=== PATIENT | female | born 1940 | race Caucasian/White ===

== ENCOUNTER 2021-06-04 01:47 | Observation (INO) | payer MEDICARE, OTHER, SELFPAY ==
[2021-06-04] VITALS (8 sets, daily range): BP systolic 132–176; BP diastolic 43–65; PULSE 62–80; RESP 14–18; TEMP 36.2–38.7; O2SAT 93–99; BMI 37.5; BMI 35.9
--- NOTE | 2021-06-04 02:18 | ED.VIS.GI ---
HPI HPI - GI History of Present Illness Chief Complaint: Nausea/Vomiting/Diarrhea Narrative Narrative: 81-year-old female with nausea, vomiting, diarrhea x1 hour. She states she met a casserole earlier and she is the only one that ate it. She states it tasted fine. Patient states that about midnight she started having diarrhea and then about an hour ago started vomiting. She states that she tried to get up go to the bathroom and felt lightheaded and fell. She denies any injury. She states that she has not had a fever. She does admit to chills. She has no abdominal pain. Patient reports she has a history of liver transplant many years ago. Her liver enzymes were followed throughout these years and have been normal. Patient does report that she has intermittent bouts of nausea, vomiting, diarrhea since her liver transplant. He is due 10 to resolve. [facility] Medical History Diabetes mellitus Hypertension Home Medications ondansetron 4 mg PO Q8H PRN #10 tab 06/04/21 [Rx Last Taken Unknown] Allergy/AdvReac Type Severity Reaction Status Date / Time calcium carbonate AdvReac Rash Verified 06/04/21 01:50 [From Viactiv] cholecalciferol (vitamin D3) AdvReac Rash Verified 06/04/21 01:50 [From Viactiv] phytonadione (vitamin K1) AdvReac Rash Verified 06/04/21 01:50 [From Viactiv] Surgical History Liver transplanted Social History Smoking Status: Never smoker ROS ROS ED Constitutional Constitutional ED: Reports chills; Denies fever(s) ENT ENT ED: Denies rhinorrhea Cardiovascular Cardiovascular: Denies chest pain or palpitations Respiratory/Chest Respiratory/Chest: Denies cough or dyspnea Gastrointestinal Gastrointestinal: Reports diarrhea, nausea and vomiting; Denies abdominal pain Genitourinary Genitourinary ED: Denies dysuria or hematuria Musculoskeletal Musculoskeletal: Denies myalgias Integumentary Denies rash Neurologic Neurologic: Denies headache(s) or weakness Psychiatric Psychiatric: Denies anxiety or depression EXAM Physical Exam Const Vital Signs: 06/04/21 01:51 Temperature 97.4 F L Temperature Source Oral Pulse Rate 62 Respiratory Rate 15 Blood Pressure 132/48 H Blood Pressure Mean 76 Pulse Ox 99 Oxygen Delivery Method Room Air Positive well nourished General Appearance ED: NAD; Negative for pallor HEENT normocephalic and atraumatic Eyes PERRL and EOMs intact bilaterally General Eye ED: Negative for pale conjunctiva or scleral icterus Neck no lymphadenopathy and supple Resp normal respiratory effort and clear to auscultation bilaterally Cardio regular rate and regular rhythm GI non-tender and non-distended Palpation: soft Neuro Sensorium / Orientation: alert, oriented to person, oriented to place and oriented to time Psych mental status grossly normal and thought process normal Skin General Skin Exam: Negative for jaundice or pallor Lesions: no lesions Rashes: no rashes MDM MDM MDM Narrative Medical decision making narrative: Patient seen and evaluated for nausea, vomiting, diarrhea. She felt lightheaded earlier and fell without injury. Patient does report multiple episodes of diarrhea prior to her vomiting episode. She was given a liter of normal saline and Zofran without return of her nausea. CBC is drawn and shows a slight leukocytosis of 13.1 however this is nonspecific and may be due to her vomiting episodes. She does not have any abdominal pain, cough, shortness of breath, urinary symptoms. She does have diarrhea without recent antibiotics use. She does report that she made herself a casserole yesterday which may be the source of her diarrhea, nausea, vomiting. CMP shows a slightly elevated alkaline phosphatase at 156 but otherwise her LFTs are normal. Creatinine is 1.77 and this was compared to her previous creatinine 2 days ago which was 1.58. Her GFR then was 33 and today it is 29. Urinalysis negative for infection. Patient has normal vital signs and otherwise well-appearing. Since her nausea and vomiting have resolved I will give her some Zofran for home. She is encouraged to hydrate well. She is given return precautions. Impression: 1. Nausea/vomiting 2. Diarrhea 3. Leukocytosis 4. Dehydration 5. Lightheadedness Lab Data Attestation: I reviewed the patient's lab results. Labs: Laboratory Results - last 24 hr 06/04/21 06/04/21 06/04/21 02:20 02:20 02:40 WBC 13.1 H RBC 4.97 Hgb 13.9 Hct 43.9 MCV 88.3 MCH 28.0 MCHC 31.7 L RDW Std Deviation 44.0 H RDW Coeff of Tim 13.6 Plt Count 225 MPV 11.0 Immature Gran % (Auto) 0.500 Neut % (Auto) 83.9 H Lymph % (Auto) 8.3 L [place] % (Auto) 5.7 Eos % (Auto) 1.4 Baso % (Auto) 0.2 Absolute Neuts (auto) 11.0 H Absolute Lymphs (auto) 1.09 Nucleated RBC % 0 Sodium 141 Potassium 4.2 Chloride 112 H Carbon Dioxide 24.0 Anion Gap 5 BUN 29 H Creatinine 1.77 H Estim Creat Clear Calc 21.53 Est GFR (MDRD) Af Amer 35 L Est GFR (MDRD) Non-Af 29 L BUN/Creatinine Ratio 16.4 Glucose 156 H Calcium 8.3 L Total Bilirubin 0.20 AST 33 ALT 36 Alkaline Phosphatase 156 H Total Protein 7.4 Albumin 3.4 Globulin 4.0 Albumin/Globulin Ratio 0.8 L Urine Color Yellow Urine Clarity Clear Urine pH 6.0 Ur Specific [place] 1.025 Urine Protein 100 H Urine Glucose (UA) Normal Urine Ketones Negative Urine Occult Blood Negative Urine Nitrite Negative Urine Bilirubin Negative Urine Urobilinogen Normal Ur Leukocyte Esterase Negative Urine RBC 0 SEEN Urine WBC 0 SEEN Ur Squamous Epith Cells 0 SEEN Urine Bacteria RARE Urine Mucus 0 SEEN Discharge Plan Triage Chief Complaint: Nausea/Vomiting/Diarrhea ED Provider: Ashwin Lawson Dx/Rx/DC Orders Instructions: ED Vomiting and Diarrhea ... Prescriptions: New ondansetron 4 mg tablet,disintegrating 4 mg PO Q8H PRN (Reason: nausea and vomiting) Qty: 10 RF: 0 Primary Care Provider: Iza Fox Referrals: Iza Fox MD [Primary Care Provider] - Disposition Disposition: Home, Self Care
[2021-06-04] MEDS: Ondansetron 4 MG/2 ML Vial IV (02:20)
[2021-06-04] MEDS: 0.9% Normal Saline 1,000 ML 1000 ML IV (02:20)
[2021-06-04 02:27] LABS: Absolute Lymphocyte Count 1.09 X10^3/uL (0.83-4.51); Basophil# 0.03 X10^3/uL; Basophil% 0.2 % (0-1); Eosinophil# 0.18 X10^3/uL; Eosinophils% 1.4 % (0-5); Hematocrit 43.9 % (37-47); Hemoglobin 13.9 g/dL (12.0-15.0); Lymphocyte # 1.09 X10^3/ul (0.83-4.51); Lymphocyte % 8.3 % (19-41); Mean Corp Hgb Conc 31.7 g/dL (32-36); Mean Corpuscular Volume 88.3 fL (81-99); Monocyte# 0.75 X10^3/uL; Monocyte% 5.7 % (0-10); NRBC Flagged by Analyzer 0 % (0-5); Neutrophil # 10.95 X10^3/uL (2.7-7.7); Neutrophil % 83.9 % (47-70); Platelet Count 225 K/mm3 (150-450); RBC Distribution Width CV 13.6 % (11.6-14.6); Red Blood Count 4.97 M/mm3 (4.2-5.4); White Blood Count 13.1 K/mm3 (4.4-11.0)
[2021-06-04 02:47] LABS: Mucous, Urine 0 SEEN /hpf (<or=2+); Red Blood Cells-Urine 0 SEEN /hpf (0-5); Squamous Epithelial Cells - UA 0 SEEN /hpf (5-10); White Blood Cells 0 SEEN /hpf (0-5)
[2021-06-04 02:49] LABS: Color, Urine Yellow (Yellow); Glucose, Dipstick Normal (Normal); Ketone-Dipstick Negative (Negative); Leukocyte Esterase-Dipstick Negative /ul (Negative); Nitrite-Dipstick Negative (Negative); Occult Blood-Urine Negative /ul (Negative); Protein-Dipstick 100 mg/dl (Negative); Specific Gravity, Urine 1.025 (1.002-1.030); Urine Bilirubin Dipstick Negative (Negative); Urine Clarity Clear (Clear); Urine Urobilinogen Normal (Normal)
[2021-06-04 02:54] LABS: ALB/GLOB Ratio 0.8 RATIO (0.9-2.4); AST(SGOT) 33 U/L (15-37); Alanine Aminotransfer ALT/SGPT 36 U/L (13-56); Albumin, Serum 3.4 g/dL (3.2-5.0); Alkaline Phosphatase 156 U/L (45-117); Anion Gap 5 (5-15); BUN 29 mg/dL (7-18); BUN/Creat Ratio 16.4 RATIO (10-20); Calcium,Total 8.3 mg/dL (8.5-10.1); Chloride 112 mmol/L (98-107); Creatinine, Serum 1.77 mg/dL (0.55-1.02); EST Glomerular Filtration Rate 29 mL/min (>60); Est Glom Filt Rate - Afr Amer 35 mL/min (>60); Estimated Creatinine Clearance 21.53 ml/min; Glucose 156 mg/dL (74-106); Potassium 4.2 mmol/L (3.5-5.1); Protein, Total 7.4 g/dL (6.4-8.2); Sodium Level 141 mmol/L (136-145)
[2021-06-04 03:01] LABS: Bacteria RARE /hpf (None Seen)
--- NOTE | 2021-06-04 04:39 | ED.RN ---
FAMILY CONCERNED ABOUT PT BEING D/C D/T HER STILL BEING WEAK. THIS RN STATED THAT SHE WOULD HAVE THE PT GET UP AND WALK, PT STATES, I DONT WANT TO WALK. PT GIVEN LITTLE TO NO EFFECT TO HELP SIT UP IN BED. THIS RN AND FAMILY HELP PT TO SIT THEN STAND. PT I DONT WANT TO WALK. THIS RN AND FAMILY ASSIST THE PT TO SIT, PT ON HER OWN ADJUSTS HER SELF IN BED AND SWINGS HER LEGS BACK IN BED.
--- NOTE | 2021-06-04 05:14 | HP.PCM.HOS_ITS ---
HPI - General General Date of Admission: 06/04/21 HPI Narrative PREETHI THOMAS, is a 81 F with a significant history of liver transplantation 21 years ago; diabetes mellitus who presents to emergency department with nausea vomiting and diarrhea after eating a casserole on the same day. Her symptoms started few hours before presentation. Associated symptom is chills; lightheadedness and fall. Also a day before her symptoms started she ate a fish salad from a restaurant. At the emergency department attempts was made to discharge patient. Patient stood up however she said that she could not walk. She then laid on the bed and had loose bowel movements. She had multiple episodes of loose bowel movements at the emergency department. She reports fatigue and weakness [facility] Medical History Diabetes mellitus Hypertension Home Medications ondansetron 4 mg PO Q8H PRN #10 tab 06/04/21 [Rx Last Taken Unknown] Allergy/AdvReac Type Severity Reaction Status Date / Time calcium carbonate AdvReac Rash Verified 06/04/21 01:50 [From Viactiv] cholecalciferol (vitamin D3) AdvReac Rash Verified 06/04/21 01:50 [From Viactiv] phytonadione (vitamin K1) AdvReac Rash Verified 06/04/21 01:50 [From Viactiv] Family History Other Diabetes Surgical History Liver transplanted Social History Smoking Status: Never smoker ROS ROS Narrative Pertinent positives and pertinent negatives as noted in HPI. All other systems were reviewed and are negative. Vital Signs Vital Signs Vital Signs: 06/04/21 01:51 Temperature 97.4 F L Temperature Source Oral Pulse Rate 62 Respiratory Rate 15 Blood Pressure 132/48 H Blood Pressure Mean 76 Pulse Ox 99 Oxygen Delivery Method Room Air Weight Weight: 99.2 kg Body Mass Index (BMI) 37.5 Physical Exam Narrative Physical exam: General: Well-nourished, well-developed. Head: Normocephalic, atraumatic, no tenderness Eyes: Vision is grossly intact. EOMI ENT, no trauma, moist mucous membranes, no rhinorrhea Neck: Nontender, full range of motion, no spinal tenderness, deformities, step- off CVS: Regular rate and rhythm. S1-S2 present. No murmur, gallop or rub. Respiratory : clear to auscultation bilaterally, chest wall nontender, no wheezing Abdomen: Soft, nontender, nondistended, normal bowel sounds, no masses : Deferred Back: Nontender, no CVA tenderness, no midline spinal tenderness, deformities, step-offs Extremities: Nontender full range of motion, no trauma Skin: Normal color, no trauma, abrasions Neuro: Alert, oriented, cranial nerves II through XII grossly intact. Psychiatry: Normal mood. Normal affect. Not depressed. Not anxious. Results Lab / Micro Data Result Diagrams: 06/04/21 02:20 06/04/21 02:20 Labs: Laboratory Results - last 24 hr 06/04/21 02:20: WBC 13.1 H, RBC 4.97, Hgb 13.9, Hct 43.9, MCV 88.3, MCH 28.0, MCHC 31.7 L, RDW Std Deviation 44.0 H, RDW Coeff of Tim 13.6, Plt Count 225, MPV 11.0, Immature Gran % (Auto) 0.500, Neut % (Auto) 83.9 H, Lymph % (Auto) 8.3 L, [place] % (Auto) 5.7, Eos % (Auto) 1.4, Baso % (Auto) 0.2, Absolute Neuts (auto) 11.0 H, Absolute Lymphs (auto) 1.09, Nucleated RBC % 0 06/04/21 02:20: Sodium 141, Potassium 4.2, Chloride 112 H, Carbon Dioxide 24.0, Anion Gap 5, BUN 29 H, Creatinine 1.77 H, Estim Creat Clear Calc 21.53, Est GFR (MDRD) Af Amer 35 L, Est GFR (MDRD) Non-Af 29 L, BUN/Creatinine Ratio 16.4, Glucose 156 H, Calcium 8.3 L, Total Bilirubin 0.20, AST 33, ALT 36, Alkaline Phosphatase 156 H, Total Protein 7.4, Albumin 3.4, Globulin 4.0, Albumin/Globulin Ratio 0.8 L 06/04/21 02:40: Urine Color Yellow, Urine Clarity Clear, Urine pH 6.0, Ur Specific [place] 1.025, Urine Protein 100 H, Urine Glucose (UA) Normal, Urine Ketones Negative, Urine Occult Blood Negative, Urine Nitrite Negative, Urine Bilirubin Negative, Urine Urobilinogen Normal, Ur Leukocyte Esterase Negative, Urine RBC 0 SEEN, Urine WBC 0 SEEN, Ur Squamous Epith Cells 0 SEEN, Urine Bacteria RARE, Urine Mucus 0 SEEN Assessment & Plan Assessment/Plan (1) Gastroenteritis: (2) Diabetes mellitus: QUALIFIERS: Diabetes mellitus complication status: without complication Diabetes mellitus manager terminal insulin use: with detention use Diabetes mellitus type: type 2 Qualified Code(s): E11.9 - Type 2 diabetes mellitus without complications; Z79.4 - correction (current) use of insulin PLAN: Acute gastroenteritis Likely viral Discussed ED doctor ordered enteric pathogen panel and C. difficile; follow. Supportive treatment with lactated Ringer's; IV Zofran for antiemetics. Generalized weakness Secondary acute gastroenteritis PT and OT to work with patient. Case management consult. Diabetes mellitus with nephropathy Patient with hyperglycemia on presentation De-escalate home basal insulin. Accu-Chek QA CHS with correction scale insulin ordered. Hypertension Blood pressure is not within goal Continue home amlodipine and lisinopril. As needed hydralazine ordered. Trend blood pressure and adjust blood pressure medications. CKD stage IIIb Creatinine on presentation was 1.77. Of [facility] records show that on 06/01/2021 her creatinine was 1.56 and on 03/23/2021 her creatinine was 1.55. Stable Trend BMP DVT prophylaxis SCD ordered. Charges/Coding Visit Charges OBSV E&M: 15310 Initial observation care L3
--- NOTE | 2021-06-04 05:22 | ED.RN ---
PT REFUSES TO USE BED PAIN OR BED SIDE TOILET. PT JUST WANTS TO LAY IN BED AND SOIL HER DIAPER.
--- NOTE | 2021-06-04 05:25 | ED.RN ---
FAMILY WANTING TO KNOW WHAT THE WAIT IS FOR REGARDING BEING ADMITTED. EXPLAINED THAT IT IS A PROCESS AND THOUGH THE PT DOES NOT FEEL WELL, SHE IS STABLE.
[2021-06-04] MEDS: Lactated Ringers 1,000 ML 75 ML IV ×2 (07:01→20:37)
[2021-06-04] MEDS: Insulin Lispro 100 UNIT/ML INSULN.PEN SC ×4 (07:11→21:00)
[2021-06-04 08:45] LABS: Bedside Glucose 214 mg/dL (74-106)
--- NOTE | 2021-06-04 10:46 | CASEMGMT ---
SW met with patient. Introduced self and role at [facility]. SW asked patient if she thinks she will be able to return home or if she thinks she will need to go somewhere for short term rehab. Patient feels she will be able to go home at discharge. Patient asked for information on medical alert systems. SW told patient SW will get her information. Halina ALFARO
[2021-06-04 11:25] LABS: Bedside Glucose 182 mg/dL (74-106)
--- NOTE | 2021-06-04 13:12 | CASEMGMT ---
LONNIE provided patient with a medical alert list. Patient was sleeping so LONNIE set it on her table. Halina ALFARO
[2021-06-04] MEDS: Acetaminophen 325 MG Tablet 650 MG PO ×2 (13:15→20:58)
--- NOTE | 2021-06-04 15:36 | CASEMGMT ---
Therapy states no need for any further therapy at discharge. Angel GALDAMEZ CM
[2021-06-04 17:05] LABS: Bedside Glucose 208 mg/dL (74-106)
[2021-06-04] MEDS: Insulin Glargine-YFGN 100 UNIT/ML Pen 18 UNIT SC (20:59)
[2021-06-04 21:11] LABS: Bedside Glucose 168 mg/dL (74-106)
[2021-06-05 02:57] VITALS: BP 142/41; PULSE 67; RESP 18; TEMP 37.2; O2SAT 96
[2021-06-05 04:52] LABS: Absolute Lymphocyte Count 1.01 X10^3/uL (0.83-4.51); Absolute Neutrophil Count 4.1 X10^3/uL (2.0-7.7); Basophil# 0.01 X10^3/uL; Basophil% 0.2 % (0-1); Eosinophil# 0.05 X10^3/uL; Eosinophils% 0.9 % (0-5); Hematocrit 35.4 % (37-47); Hemoglobin 11.3 g/dL (12.0-15.0); Lymphocyte # 1.01 X10^3/ul (0.83-4.51); Lymphocyte % 18.4 % (19-41); Mean Corp Hgb Conc 31.9 g/dL (32-36); Mean Corpuscular Hgb 28.3 pg (27.0-32.0); Mean Corpuscular Volume 88.7 fL (81-99); Mean Platelet Vol. 11.6 fl (6.2-12.0); Monocyte# 0.29 X10^3/uL; Monocyte% 5.3 % (0-10); NRBC Flagged by Analyzer 0 % (0-5); Neutrophil # 4.11 X10^3/uL (2.7-7.7); Neutrophil % 74.8 % (47-70); Platelet Count 146 K/mm3 (150-450); RBC Distribution Width SD 45.4 fl (35.1-43.9); Red Blood Count 3.99 M/mm3 (4.2-5.4); White Blood Count 5.5 K/mm3 (4.4-11.0)
[2021-06-05 05:06] LABS: Anion Gap 5 (5-15); BUN 31 mg/dL (7-18); BUN/Creat Ratio 20.7 RATIO (10-20); Calcium,Total 7.4 mg/dL (8.5-10.1); Chloride 111 mmol/L (98-107); EST Glomerular Filtration Rate 35 mL/min (>60); Est Glom Filt Rate - Afr Amer 43 mL/min (>60); Glucose 146 mg/dL (74-106); Potassium 4.2 mmol/L (3.5-5.1); Sodium Level 138 mmol/L (136-145)
[2021-06-05 05:10] LABS: Magnesium 1.5 mg/dL (1.6-2.6)
[2021-06-05 06:51] LABS: Bedside Glucose 121 mg/dL (74-106)
[2021-06-05 08:05] VITALS: BP 140/51; PULSE 63; RESP 18; TEMP 36.4; O2SAT 97
[2021-06-05] MEDS: Lactated Ringers 1,000 ML 75 ML IV (09:30)
[2021-06-05] MEDS: Ramipril 2.5 MG Capsule PO (09:30)
[2021-06-05] MEDS: amLODIPine 10 MG Tablet PO (09:30)
[2021-06-05] MEDS: Tacrolimus Anhydrous 1 MG Capsule PO (09:30)
[2021-06-05] MEDS: Insulin Lispro 100 UNIT/ML INSULN.PEN SC (11:13)
[2021-06-05 11:25] LABS: Bedside Glucose 186 mg/dL (74-106)
--- NOTE | 2021-06-05 11:46 | CASEMGMT ---
DENICE PANDEY in to discuss [employer] form with patient. DENICE PANDEY explained [employer] form, patient voiced understanding. Pt signed form and filed in chart. Pt provided with a copy of signed [employer] form. Provided pt with a list of medic alert companies and pricing per request. Patient had no further questions or concerns at this time.
[2021-06-05 12:54] VITALS: O2SAT 97
[2021-06-05 14:15] VITALS: BP 123/93; PULSE 69; RESP 18; TEMP 36.9; O2SAT 98
--- NOTE | 2021-06-05 14:31 | DCINST_ITS ---
Discharge Instructions Diet Discharge Diet: Carb Control Diet Activity Discharge Activity: Return to Normal Activity Dressing / Incision Call your doctor if you observe: Fever of 101 or Higher, Shortness of breath, Dizziness, Fainting spells, Swelling in the ankles, Chest pain and Increased palpitations (irregular heartbeat) Follow Up Care Test Results: Test results from this visit will be discussed in further detail at your follow-up appointment, if applicable. Discharge Plan Admission Admit Date/Time: 06/04/21 05:07 Attending Provider: Nickolas Baxter Primary Care Provider: Iza Fox Instructions Patient Instructions: ED Vomiting and Diarrhea ... Additional Instructions / Restrictions: Follow-up with your PCP to obtain a BMP to monitor your kidney function. It was a little bit high on admission however we do not have any baseline labs to c ompare you to. Discharge Orders/Prescriptions Prescriptions: New ondansetron 4 mg tablet,disintegrating 4 mg PO Q8H PRN (Reason: nausea and vomiting) Qty: 10 RF: 0 Continued amlodipine 5 mg tablet 10 mg DAILY RF: 0 Lantus Solostar U-100 Insulin 100 unit/mL (3 mL) insulin pen 28 unit SUBCUT QHS RF: 0 lovastatin 20 mg tablet 20 mg QHS RF: 0 magnesium gluconate [Mag-G] 27 mg magnesium (500 mg) tablet 27 mg DAILY RF: 0 sulfamethoxazole-trimethoprim 800-160 mg tablet 1 tab QMWF RF: 0 tacrolimus 1 mg capsule 1 mg BID RF: 0 Trulicity 0.75 mg/0.5 mL pen injector SUBCUT QWEEK RF: 0 Held ramipril 2.5 mg capsule 2.5 mg DAILY RF: 0 Hold Instructions: Resume on 06/08/21. Referrals / Follow Up: Iza Fox MD [Primary Care Provider] - Within 2 Weeks Disposition Disposition (needs filled in before D/C Order can be placed): Home, Self Care
--- NOTE | 2021-06-05 14:35 | DS.PCM_ITS ---
Providers Date of Admission: 06/04/21 Primary Care Physician: Dr. 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 Medications at Discharge Home Medications Lantus Solostar U-100 Insulin 28 unit SUBCUT QHS 06/04/21 Trulicity mg SUBCUT QWEEK 06/04/21 amlodipine 10 mg DAILY 06/04/21 lovastatin 20 mg QHS 06/04/21 magnesium gluconate [Mag-G] 27 mg DAILY 06/04/21 ondansetron 4 mg PO Q8H PRN #10 tab 06/04/21 ramipril 2.5 mg DAILY 06/04/21 sulfamethoxazole-trimethoprim 1 tab QMWF 06/04/21 tacrolimus 1 mg BID 06/04/21 Hospital Course Operations None Procedures None Summary of Care Provided Minutes Spent on Discharge: 40 Hospital Course: Per HPI: PREETHI THOMAS, is a 81 F with a significant history of liver transplantation 21 years ago; diabetes mellitus who presents to emergency department with nausea vomiting and diarrhea after eating a casserole on the same day. Her symptoms started few hours before presentation. Associated symptom is chills; lightheadedness and fall. Also a day before her symptoms started she ate a fish salad from a restaurant. At the emergency department attempts was made to discharge patient. Patient stood up however she said that she could not walk. She then laid on the bed and had loose bowel movements. She had multiple episodes of loose bowel movements at the emergency department. She reports fatigue and weakness Hospital Course: 1. Gastroenteritis/CKD 3B?81-year-old female who has had intermittent episodes of gastroenteritis in the past presents with acute gastroenteritis that could be related to food. She says she and her friend went to go eat and both became s ick with nausea, vomiting, diarrhea. Unfortunately she has been unable to provide a stool sample because she continues to miss the hat in the toilet however the nurse did see her last bowel movement and it was performed essentially ruling out C. difficile. She feels much better today and I discuss ed with her the possibility for discharge, she did express understanding of the risk and benefits of discharge and would like to go home today. She was valued by PT/OT who did not recommend any further outpatient therapy. On admission her creatinine was 1.77 unfortunately we were unable to tell at that time whether or not this is her baseline creatinine. On discharge her creatinine is 1.55 which does appear to be closer to baseline. Till Monday and recommend outpatient follow-up for further lab work to determine continued maintenance of her baseline creatinine. Family was asking for the possibility of a GI consult and I do think that this is some that can be done as an outpatient. 2. Hypertension, diabetes with nephropathy, hyperlipidemia, transplant history are all chronic medical conditions which complicate care. Her home medications were continued where appropriate. I did discuss with her the recommendation to follow-up with transplant medicine to see whether or not the tacrolimus and the Bactrim are something that need to be continued. Physical Exam Const alert, oriented x3 and no apparent distress General Appearance: cooperative HEENT normocephalic and moist oral mucous membranes Eyes PERRL, EOMs intact bilaterally and conjunctivae normal Neck supple and no JVD Resp normal respiratory effort, no retractions, no use of accessory muscles and clear to auscultation bilaterally Auscultation: Negative for crackles, rales, rhonchi or wheezes Cardio regular rate, regular rhythm, S1 normal heart sound, S2 normal heart sound and no murmurs GI soft to palpation, non-tender and non-distended; Negative for hepatosplenomegaly Extremity no clubbing, cyanosis or edema Skin no rashes or lesions noted Neuro no focal motor deficits and no sensory deficits noted Psych affect normal Appearance: appropriate Weight / BMI Weight Weight: 209 lb 10.554 oz Body Mass Index (BMI) 35.9 ABG / Lab / Microbiology Data Result Diagrams: 06/05/21 04:13 06/05/21 04:13 Laboratory: Laboratory Results - last 24 hr 06/04/21 17:00: POC Glucose 208 H 06/04/21 20:48: POC Glucose 168 H 06/05/21 04:13: WBC 5.5, RBC 3.99 L, Hgb 11.3 L, Hct 35.4 L, MCV 88.7, MCH 28.3, MCHC 31.9 L, RDW Std Deviation 45.4 H, RDW Coeff of Tim 14.0, Plt Count 146 L, MPV 11.6, Immature Gran % (Auto) 0.400, Neut % (Auto) 74.8 H, Lymph % (Auto) 18.4 L, [place] % (Auto) 5.3, Eos % (Auto) 0.9, Baso % (Auto) 0.2, Absolute Neuts (auto) 4.1, Absolute Lymphs (auto) 1.01, Nucleated RBC % 0 06/05/21 04:13: Sodium 138, Potassium 4.2, Chloride 111 H, Carbon Dioxide 22.0, Anion Gap 5, BUN 31 H, Creatinine 1.50 H, Estim Creat Clear Calc 25.40, Est GFR (MDRD) Af Amer 43 L, Est GFR (MDRD) Non-Af 35 L, BUN/Creatinine Ratio 20.7 H, Glucose 146 H, Calcium 7.4 L 06/05/21 04:13: Magnesium 1.5 L 06/05/21 06:32: POC Glucose 121 H 06/05/21 11:11: POC Glucose 186 H D/C Instructions Discharge Diet: Carb Control Diet Call your doctor if you observe: Fever of 101 or Higher, Shortness of breath, Dizziness, Fainting spells, Swelling in the ankles, Chest pain and Increased palpitations (irregular heartbeat) Meaningful Use Info Meaningful Use Diagnoses (Choose all that apply): None applicable Discharge Plan Admission Admit Date/Time: 06/04/21 05:07 Attending Provider: Nickolas Baxter Primary Care Provider: Iza Fox Instructions Patient Instructions: ED Vomiting and Diarrhea ... Additional Instructions / Restrictions: Follow-up with your PCP to obtain a BMP to monitor your kidney function. It was a little bit high on admission however we do not have any baseline labs to compare you to. Discharge Orders/Prescriptions Prescriptions: New ondansetron 4 mg tablet,disintegrating 4 mg PO Q8H PRN (Reason: nausea and vomiting) Qty: 10 RF: 0 Continued amlodipine 5 mg tablet 10 mg DAILY RF: 0 Lantus Solostar U-100 Insulin 100 unit/mL (3 mL) insulin pen 28 unit SUBCUT QHS RF: 0 lovastatin 20 mg tablet 20 mg QHS RF: 0 magnesium gluconate [Mag-G] 27 mg magnesium (500 mg) tablet 27 mg DAILY RF: 0 sulfamethoxazole-trimethoprim 800-160 mg tablet 1 tab QMWF RF: 0 tacrolimus 1 mg capsule 1 mg BID RF: 0 Trulicity 0.75 mg/0.5 mL pen injector SUBCUT QWEEK RF: 0 Held ramipril 2.5 mg capsule 2.5 mg DAILY RF: 0 Hold Instructions: Resume on 06/08/21. Referrals / Follow Up: Iza Fox MD [Primary Care Provider] - Within 2 Weeks Disposition Disposition (needs filled in before D/C Order can be placed): Home, Self Care Charges/Coding Visit Charges OBSV E&M: 96804 Observation care discharge
== END 2021-06-05 14:34 | disposition home or self-care (01) ==
LOC: ED 05:14 → PCU 05:26
PROVIDERS: Admitting Provider Hospitalist; Emergency Provider Student in an Organized Health Care Education/Training Program; PCP Internal Medicine; Visit Provider Family Medicine
DX: K52.9 Noninfective gastroenteritis and colitis, unspecified (principal); Z94.4 Liver transplant status; E11.22 Type 2 diabetes mellitus with diabetic chronic kidney disease; Z79.4 Long term (current) use of insulin; N18.32 Chronic kidney disease, stage 3b; D72.829 Elevated white blood cell count, unspecified; E78.5 Hyperlipidemia, unspecified; I12.9 Hypertensive chronic kidney disease with stage 1 through stage 4 chronic kidney disease, or unspecified chronic kidney disease; E86.0 Dehydration; Z79.899 Other long term (current) drug therapy
CPT/HCPCS: 36415; 80048; 80053; 81001; 82962; 83735; 85025; 96361; 96374; 97162; 97166; 99218; 99285; J7030; J7120; G0378; J2405

== ENCOUNTER 2021-09-08 09:21 | Day surgery (SDC) | payer MEDICARE, OTHER, SELFPAY ==
[2021-09-08] VITALS (7 sets, daily range): BP systolic 141–184; BP diastolic 49–59; PULSE 53–70; RESP 15–16; TEMP 36.1–36.5; O2SAT 94–99; BMI 35.6
[2021-09-08] MEDS: Lactated Ringers 1,000 ML 15 ML IV (09:58)
[2021-09-08 10:20] LABS: Bedside Glucose 151 mg/dL (74-106)
--- NOTE | 2021-09-08 10:45 | EGD_PTH ---
PATIENT: PREETHI THOMAS LOC: EN U#:[id number] AGE/SX: 81/F ROOM: RE09/08/[address]: Dr. Julio Ramos DO : 1940 BED: DIS: 09/08/2021 SPEC #: [id number] RECD: 09/08/21 13:55 STATUS: MEGHAN TIKI #: [id number] STEPHANIE: 09/08/21 10:[address]: Julio Ramos DEPT: SURGICAL PATHOLOGY RECD BY: Yomaira Johnson ENTERED: 09/09/21 09:36 SP TYPE: EGD BIOPSY GABRIELLA DR: Dr. 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 Chronic inflammation. Negative for dysplasia. See comment. PATRICIA:ewa 09/10/2021 COMMENT Alcian blue/PAS stain with matched control is used in the evaluation of the specimen. MICROSCOPIC DESCRIPTION Slides are reviewed. GROSS DESCRIPTION Received in fixative is one container labeled with the patient's name and designated distal esophagus biopsy. The specimen consists of two irregular fragments of light grace soft tissue that in aggregate measure 0.8 x 0.3 x 0.1 cm. The specimen is totally submitted in one cassette. / PATRICIA:ewa 09/09/2021 TC:3 CPT: 51643, 44083
--- NOTE | 2021-09-08 11:43 | OP.EGD_ITS ---
Patient Name: Carmen Townsend Procedure Date: 09/08/2021 11:23 AM Date of : 1940 Age: 81 Procedure: Upper GI endoscopy Indications: Dysphagia Providers: Julio Ramos DO Referring MD: Julio Ramos DO Medicines: Monitored Anesthesia Care Patient Profile: This is an 81 year old female. Refer to note in patient chart for documentation of history and physical. Patient has symptoms of chronic dysphagia. Complications: No immediate complications. Procedure: Pre-Anesthesia Assessment: - Prior to the procedure, a History and Physical was performed, and patient medications and allergies were reviewed. The risks and benefits of the procedure and the sedation options and risks were discussed with the patient. All questions were answered and informed consent was obtained. Patient identification and proposed procedure were verified by the physician in the pre-procedure area. Mental Status Examination: alert and oriented. Airway Examination: normal oropharyngeal airway and neck mobility. Respiratory Examination: clear to auscultation. CV Examination: normal. Prophylactic Antibiotics: The patient does not require prophylactic antibiotics. Prior Anticoagulants: The patient has taken no previous anticoagulant or antiplatelet agents. After reviewing the risks and benefits, the patient was deemed in satisfactory condition to undergo the procedure. The anesthesia plan was to use moderate sedation / analgesia (conscious sedation). Immediately prior to administration of medications, the patient was re-assessed for adequacy to receive sedatives. The heart rate, respiratory rate, oxygen saturations, blood pressure, adequacy of pulmonary ventilation, and response to care were monitored throughout the procedure. The physical status of the patient was re-assessed after the procedure. After obtaining informed consent, the endoscope was passed under direct vision. Throughout the procedure, the patient's blood pressure, pulse, and oxygen saturations were monitored continuously. The gastroscope was introduced through the mouth, and advanced to the second part of duodenum. The upper GI endoscopy was accomplished without difficulty. The patient tolerated the procedure well. Scope In: 11:27:46 AM Scope Out: 11:34:45 AM Total Procedure Duration Time 0 hours 6 minutes 59 seconds Findings: One benign-appearing, intrinsic stenosis was found 21 to 22 cm from the incisors. This stenosis was moderately severe and measured 6 cm (in length). The stenosis was traversed. A guidewire was placed and the scope was withdrawn. Dilation was performed with a Savary dilator with no resistance at 51 Fr. The dilation site was examined and showed. Estimated blood loss was minimal. The Z-line was irregular and was found 37 cm from the incisors. Biopsies were taken with a cold forceps for histology. Verification of patient identification for the specimen was done. Biopsy is contraindicated because. The examined esophagus was moderately tortuous. Two 5 mm bleeding angiodysplastic lesions were found in the gastric body. Coagulation for hemostasis using heater probe was successful. Estimated blood loss was minimal. A small amount of food (residue) was found in the prepyloric region of the stomach. The first portion of the duodenum was normal. Impression: - Benign-appearing esophageal stenosis. Dilated. - Z-line irregular, 37 cm from the incisors. Biopsied. Biopsy is contraindicated. - Tortuous esophagus. - Two bleeding angiodysplastic lesions in the stomach. Treated with a heater probe. - A small amount of food (residue) in the stomach. - Normal first portion of the duodenum. Recommendation: - Discharge patient to home. - Resume previous diet. - Continue present medications. - Await pathology results. Procedure Code(s): --- Professional --- 74957, 59, Esophagogastroduodenoscopy, flexible, transoral; with control of bleeding, any method 28733, Esophagogastroduodenoscopy, flexible, transoral; with insertion of guide wire followed by passage of dilator(s) through esophagus over guide wire 71290, 59,51, Esophagogastroduodenoscopy, flexible, transoral; with biopsy, single or multiple CPT copyright 2017 [employer]. All rights reserved. The codes documented in this report are preliminary and upon energy administrator review may be revised to meet current compliance requirements. Julio Ramos DO 09/08/2021 11:42:26 AM This report has been signed electronically. Number of Addenda: 1 Note Initiated On: 09/08/2021 11:23 AM Addendum Number: 1 Addendum Date: 11/11/2021 6:33:02 AM MAC was used as sedation for this procedure. Julio Ramos DO 11/11/2021 6:33:07 AM This report has been signed electronically.
--- NOTE | 2021-09-08 11:44 | OP.CCLET_ITS ---
11/11/2021 Iza Fox [address] [place] [address] Re : Upper GI endoscopy procedure for Carmen Townsend Dear Dr. Fox This procedure was performed on Wednesday, September 08, 2021. My impressions and recommendations are as follows: Impressions : - Benign-appearing esophageal stenosis. Dilated. - Z-line irregular, 37 cm from the incisors. Biopsied. Biopsy is contraindicated. - Tortuous esophagus. - Two bleeding angiodysplastic lesions in the stomach. Treated with a heater probe. - A small amount of food (residue) in the stomach. - Normal first portion of the duodenum. Recommendations : - Discharge patient to home. - Resume previous diet. - Continue present medications. - Await pathology results. My findings are described in the full procedure note, which is enclosed. If I can be of further assistance, please feel free to contact me at . Sincerely, Julio Ramos DO 09/08/2021 11:42:26 AM This report has been signed electronically.
[2021-09-08 12:30] LABS: Bedside Glucose 150 mg/dL (74-106)
--- NOTE | 2021-09-09 11:00 | PCM.HP.BLA ---
History and Physical Date of Admission: 09/08/21 81 F who presents to the office today for Initial consult. Carmen established with this clinic 09.01.21 with referral from PCP for evaluation of watery diarrhea, bloating, belching and periodic vomiting; she has an issue with this in May and feels these symptoms were related to food poisoning. And was hospitalized due to symptoms. [facility] ED presentation May 2021 with hydration provided and cessation of Bactrim and tacrolimus, both of which can cause nausea that she had been having issues with repeatedly; since these were stopped she is not having recurrent nausea. Dysphagia has been ongoing for several years and feels this is related to scar tissue following banded esophageal varices. Dysphagia has improved since hospitalization. Reports a reflux/nausea type symptom for which she take TUMs and this resolves. Constipation alternating with diarrhea that has resolved since May hospitalization. Reports complete evacuation and a daily BM. 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 She received live donor transplant from her daughter. Continues with tacrolimus. PMH CKD; psoriasis; DMII; HTN EGD 12.31.12 Colonoscopy 03.16.18 finding tubular adenoma. ROS Const Constitutional: No anorexia, fatigue, fever(s), weight change or sleep problems Eyes Eyes: No change in vision ENT ENT: No abnormal hearing, difficulty swallowing, mouth lesions, tongue swelling or throat swelling Resp Respiratory: No cough or shortness of breath Cardio Cardiology: No chest pain at rest, chest pain with exertion, shortness of breath or dyspnea on exertion Gastro GI: No difficulty swallowing Genitourinary-Female: No difficulty urinating or burning urination Musc Musculoskeletal: No joint pain, joint swelling, muscle weakness or decreased muscle mass Skin Skin: No hair loss in leg, yellowing of the eye, itchy eyes, rash, skin ulcer or skin swelling Neuro Neurology: No abnormal hearing, abnormal movements, confusion, unsteady gait/balance or memory loss Psych Psychiatric: No anxiety, No confusion and No memory loss Endo Endocrine: No fatigue or weight change Aller/Imm Allergy/Immunologic: No itchy eyes, throat swelling or tongue swelling Manny/Lymp Hematologic/Lymphatic: No easy bleeding, easy bruising or enlarged lymph nodes Exam Const General: cooperative and comfortable Nutritional Appearance: average body habitus and well nourished HENMT Head: normal to inspection Ears: hearing grossly normal bilaterally Nose: external nose normal Face and sinus: normal facial exam Mouth: oral mucosae normal Throat: posterior oropharynx normal Eyes General: appearance normal, both eyes and all related structures Neck Neck: normal visual inspection Chest Chest palpation & inspection: normal inspection of the chest and normal palpation of entire chest wall Resp Effort & Inspection: normal respiratory effort Auscultation: Bilateral: Clear to Auscultation Cardio Palpation: normal PMI Rate: regular rate Rhythm: regular rhythm GI Inspection: normal to inspection Auscultation: normal bowel sounds Percussion: normal to percussion Palpation: no hepatosplenomegaly Skin General: no rashes or lesions noted Neuro General: patient alert Extrem General: normal to inspection Psych Affect: normal affect Quality Reporting Tobacco Screening ([facility] 138) Smoking Status: Never smoker Assessment and Plan Assessment and Plan (1) Liver transplant recipient: ?Status:?Chronic ?Plan: She is doing well regarding her liver transplant.? She is only on Prograf.? She is getting her levels monitored.? She is not have any signs of jaundice, darkened urine kaleb colored stools, itching, rash, lethargy, fevers.? (2) History of cirrhosis of liver: ?Status:?Chronic (3) History of esophageal varices: ?Status:?Chronic ?Plan: We will evaluate her upper GI tract for any remnants of esophageal varices including strictures from her previous procedures. (4) Dysphagia: ?Status:?Chronic ?Plan: The differential diagnosis for esophageal dysphagia would be Schatzki's ring, esophageal web, hiatal hernia, tortuous esophagus.? Also different diagnosis will be hiatal hernia.? We will evaluate upper GI tract for any upper GI tract pathology and treat accordingly. I have re-examined the patient. There are no clinical changes since date of exam.
== END 2021-09-08 12:53 | disposition home or self-care (01) ==
LOC: EN 09:22 → AC 09:24
PROVIDERS: PCP Internal Medicine; Referring Provider Internal Medicine; Visit Provider Internal Medicine Gastroenterology
PROC: 0DJ08ZZ Inspection of Upper Intestinal Tract, Via Natural or Artificial Opening Endoscopic (ICD-10-PCS; CPT 43235; principal; 2021-09-08 10:40)
DX: K22.2 Esophageal obstruction (principal); Z94.4 Liver transplant status; Z79.4 Long term (current) use of insulin; E11.9 Type 2 diabetes mellitus without complications; K20.90 Esophagitis, unspecified without bleeding; Q39.8 Other congenital malformations of esophagus; E78.00 Pure hypercholesterolemia, unspecified; I10 Essential (primary) hypertension; Z79.899 Other long term (current) drug therapy
CPT/HCPCS: 43239; 43248; 43255; 82962; 88305; 88313; J7120; J2405

== ENCOUNTER → 2021-09-30 | Outpatient (CLI) | payer MEDICARE, OTHER, SELFPAY ==
--- NOTE | 2021-09-30 15:44 | CT_ITS ---
STUDY: CT ABDOMEN AND PELVIS WITH CONTRAST REASON FOR EXAM: Female, 81 years old. Liver transplant recipient RADIATION DOSAGE (If Supplied By Facility): CTDIvol = ( 16.04 ) mGy, DLP = ( 1312.24 ) mGycm TECHNIQUE: Transaxial images were obtained from the dome of the diaphragm to the symphysis pubis with oral contrast. Oral and amp;amp;amp;amp; IV Readi-CAT and amp;amp;amp;amp; 100mL Isovue-300 was administered. Sagittal and coronal images were reconstructed. Individualized dose optimization techniques were used for this CT. COMPARISON: None. FINDINGS: The visualized lung bases are unremarkable. Coronary artery calcification. The patient is status post liver transplant. Surgical clips are seen along the medial aspect of the right lobe of the liver. The gallbladder is not visualized. Normal spleen. There is diffuse atrophy of the pancreas. Normal bilateral adrenal glands. Mild bilateral renal atrophy. There is a retroaortic left renal vein. There is a small hiatal hernia. Normal small intestine. There are multiple colonic diverticula consistent with diverticulosis. There is non-visualization of the appendix. There is scattered atherosclerotic calcification of the abdominal aorta, without a demonstrated aneurysm. Normal inferior vena cava. Normal retroperitoneum. Normal urinary bladder. There is absence of the uterus consistent with a prior hysterectomy. There is a small umbilical hernia containing fat. Disc space narrowing and disc degeneration at the L4-L5 level. Minimal anterolisthesis of L4 on L5. CT/Abdomen/Pelvis WITH Contrast IMPRESSION: Status post liver transplantation. Sigmoid diverticulosis. Bilateral renal cortical atrophy. Electronically Signed: Panda Hyde MD at 10:09 EDT ,
[2021-09-30 16:15] LABS: CREATININE FINGERSTICK 1.4 mg/dL (0.55-1.02)
== END | disposition home or self-care (01) ==
LOC: CT 15:43
PROVIDERS: PCP Internal Medicine; Referring Provider Nurse Practitioner Adult Health; Visit Provider Nurse Practitioner Adult Health
DX: Z94.4 Liver transplant status (principal)
CPT/HCPCS: 74177; Q9967

== ENCOUNTER 2022-08-14 01:04 | Emergency (ER) | payer MEDICARE, OTHER, SELFPAY ==
[2022-08-14 01:06] VITALS: BP 179/73; PULSE 73; RESP 18; TEMP 36.4; O2SAT 99; BMI 36.1
--- NOTE | 2022-08-14 01:53 | CT_ITS ---
EXAM: CT HEAD WITHOUT INTRAVENOUS CONTRAST CLINICAL INDICATION: headache TECHNIQUE: Multiple axial images were obtained of the head without intravenous contrast. This CT exam was performed using one or more of the following dose reduction techniques: automated exposure control, adjustment of the mA and/or kV according to patient size, and/or use of iterative reconstruction technique. RADIATION DOSE: CTDIvol = 44.99 mGy, DLP = 796.11 mGy-cm COMPARISON: No relevant prior studies available. FINDINGS: BRAIN AND EXTRA-AXIAL SPACES: Increased low-density extra-axial fluid bilaterally along the frontoparietal convexities measuring up to 7 mm maximum thickness. Ventricles are relatively small and the sulci along the convexities are mildly effaced. No intra- or extra-axial hemorrhage. No evidence of acute infarct. There is preservation of the davis/white matter interface. Posterior fossa structures are unremarkable. No hydrocephalus. Basal cisterns are patent. BONES/JOINTS: Lobulated ossific masses along the frontal calvarium may be due to hyperostosis frontalis. A calcified lesion measuring 1.5 cm projecting from the left frontal calvarium may be due to a calcified meningioma. SINUSES: Unremarkable as visualized. Clear. MASTOID AIR CELLS: Unremarkable. Clear. ORBITS: Visualized globes, extraocular muscles, optic nerves and retrobulbar fat appear unremarkable. CT/Brain/Head without Contrast IMPRESSION: 1. Increased low-density extra-axial fluid bilaterally along the frontoparietal convexities measuring up to 7 mm maximum thickness. There may be mild mass effect of the sulci along the convexities and the ventricles. Differential diagnosis includes bilateral subdural hygromas or chronic subdural hematomas. These can be difficult to differentiate on CT scan. Consider MR for further evaluation which may be diagnostic. 2. Lobulated ossific masses along the frontal calvarium may be due to hyperostosis frontalis. A calcified lesion measuring 1.5 cm projecting from the left frontal calvarium may be due to a small calcified meningioma. Electronically Signed: Ty Sarkar MD at 3:06 EDT ,
--- NOTE | 2022-08-14 02:08 | EDS_ITS ---
HPI History of Present Illness Chief Complaint: Headache Narrative Narrative: Patient presents with headache that started a few days ago, it started as left- sided posterior neck pain and moved into her head and now its throughout her whole head. It is bilateral. She does not have any vision changes but she does have some photophobia, she has some nausea associated with this. She has no weakness paresthesias confusion or speech difficulties or any neurological symptoms. She has no chest pain or shortness of breath. No recent trauma. No fevers or chills. [facility] Medical History Actinic keratitis SENA (acute kidney injury) Bloating Diabetes mellitus Diarrhea Diverticulitis Dysphagia Gastric reflux GERD (gastroesophageal reflux disease) History of renal disease History of rheumatic fever History of stress test Hx of atypical nevus Hypercholesteremia Hypertension Hypertension Insulin dependent diabetes mellitus Kidney disease Telogen effluvium Wears glasses Home Medications amlodipine 5 mg tablet 10 mg DAILY 06/04/21 [History Last Taken 09/08/21] insulin glargine 100 unit/mL (3 mL) subcutaneous pen (Lantus Solostar U-100 Insulin) 28 unit subcut QHS Check with primary doctor 06/04/21 [History Last Taken Unknown] lovastatin 20 mg tablet 20 mg PO QHS 06/04/21 [History Last Taken Unknown] magnesium gluconate 27 mg magnesium (500 mg) tablet (Mag-G) 27 mg DAILY 06/04/21 [History Last Taken Unknown] ondansetron 4 mg disintegrating tablet 4 mg PO Q8H PRN nausea and vomiting #10 tabs 06/04/21 [Rx Last Taken Unknown] ramipril 2.5 mg capsule 2.5 mg PO DAILY 06/04/21 [History Last Taken 09/08/21] tacrolimus 1 mg capsule, immediate-release 1 mg PO BID 06/04/21 [History Last Taken 09/08/21] ergocalciferol (vitamin D2) 50,000 unit tablet 50,000 unit PO QWEEK 06/10/21 [History Last Taken Unknown] insulin aspart U-100 100 unit/mL (3 mL) subcutaneous pen (Novolog FlexPen U-100 Insulin aspart) 1 sliding scale dose subcut 3XD 06/10/21 [History Last Taken Unknown] meclizine 12.5 mg tablet 12.5 mg PO TID PRN Vertigo 06/10/21 [History Last Taken Unknown] pantoprazole 40 mg tablet,delayed release 40 mg PO QAM #90 tabs 12/06/21 [Rx Last Taken Unknown] oxycodone-acetaminophen 5 mg-325 mg tablet (Percocet) 1 tab PO Q6H 3 days #12 tabs 08/14/22 [Rx Last Taken Unknown] triamcinolone acetonide 0.5 % topical ointment 1 applic topical BID #15 grams 08/14/22 [Rx Last Taken Unknown] Allergy/AdvReac Type Severity Reaction Status Date / Time calcium carbonate AdvReac Rash Verified 09/22/21 08:22 [From Viactiv] cholecalciferol (vitamin D3) AdvReac Rash Verified 09/22/21 08:22 [From Viactiv] phytonadione (vitamin K1) AdvReac Rash Verified 09/22/21 08:22 [From Viactiv] Family History Other Diabetes Surgical History H/O: hysterectomy History of appendectomy History of bowel resection History of cardiac catheterization History of cholecystectomy History of dental surgery Hx of dilation and curettage Hx of LASIK Liver transplanted Social History Smoking Status: Never smoker ROS ROS ED ROS Narrative Review of systems: All systems negative except as indicated General: No fever Eyes: No visual changes. Photophobia is present ENT: No upper airway congestion, normal voice Neck: Paraspinal neck pain Cardiovascular: No chest pain Respiratory: No shortness of breath or cough Gastrointestinal: No abdominal pain, nausea vomiting or diarrhea Genitourinary: No dysuria Musculoskeletal: Denies myalgias no difficulty with ambulation Skin: No rash Neurological: Headache as in HPI no memory loss, confusion or any focal weakness Psych: No recent behavioral changes Hematologic: No easy bleeding or easy bruising EXAM Physical Exam Narrative Exam Narrative: Physical exam General: Well nourished, Well developed, No Acute Distress Head: Normocephalic, posterior the scalp region there is psoriasis but there is no evidence of cellulitis or superinfection. Eyes: Conjunctiva not pale. Pupils are 2 mm and equal and reactive. ENT: Moist mucous membranes. TM is clear. Neck: Paraspinal neck pain in the paraspinal muscles on the left. No C-spine tenderness. Otherwise patient does not have meningismus. Cardiovascular: Regular rate, Regular rhythm Respiratory: No distress, CTA bilaterally Abdomen: Soft, Nontender, Nondistended Back: Nontender, Normal Inspection. Negative for: CVA tenderness Extremities: Nontender, No edema Skin: Normal color, No rash Neurological: Alert, Normal Strength, Normal Sensation Const Vital Signs: 08/14/22 01:06 08/14/22 03:05 Temperature 97.5 F L Temperature Source Temporal Pulse Rate 73 Respiratory Rate 18 15 Blood Pressure 179/73 H Blood Pressure Mean 108 Pulse Ox 99 95 Oxygen Delivery Method Room Air Room Air MDM MDM MDM Narrative Medical decision making narrative: Patient presents with a headache, I thought about vasculitis including temporal arteritis however she has normal ESR, electrolytes and CBC are normal. I thought about intracranial mass, she is found to have a meningioma and bilateral hygromas, per radiologist there could be mass effect, therefore I did talk to Dr. Chaparro Christensen from neurosurgery at [facility] who agreed that the patient can follow-up outpatient. She will need an MRI. Otherwise I gave her analgesics and her headache improved. Clinically she likely has a tension headache since she has quite a bit of tension in her neck. However I will treat her with analgesia for home. At her age I will avoid muscle relaxants. She improved significantly I talked to family members also gave me history I believe she is stable for discharge for home. He does not meet admission criteria we talked about admission but she wants to be discharged this seems reasonable. If anything changes patient is to return. Lab Data Labs: Laboratory Results - last 24 hr 08/14/22 01:30 WBC 7.9 RBC 5.16 Hgb 14.4 Hct 44.4 MCV 86.0 MCH 27.9 MCHC 32.4 RDW Std Deviation 43.0 RDW Coeff of Tim 13.7 Plt Count 192 MPV 11.6 Immature Gran % (Auto) 0.500 Neut % (Auto) 65.5 Lymph % (Auto) 24.3 Shelby % (Auto) 7.2 Eos % (Auto) 2.0 Baso % (Auto) 0.5 Absolute Neuts (auto) 5.2 Absolute Lymphs (auto) 1.93 Nucleated RBC % 0 ESR 31 H Sodium 134 L Potassium 4.7 Chloride 105 Carbon Dioxide 23.0 Anion Gap 6 BUN 21 H Creatinine 1.57 H Estim Creat Clear Calc 23.86 Est GFR (MDRD) Af Amer 41 L Est GFR (MDRD) Non-Af 34 L BUN/Creatinine Ratio 13.4 Glucose 188 H Calcium 8.7 Total Bilirubin 0.50 AST 35 ALT 33 Alkaline Phosphatase 198 H Total Protein 7.3 Albumin 2.9 L Globulin 4.4 H Albumin/Globulin Ratio 0.7 L Radiography Diagnostic Testing: Clinical Impression(s) from Imaging Studies Brain CT 08/14/22 01:53 IMPRESSION: 1. Increased low-density extra-axial fluid bilaterally along the frontoparietal convexities measuring up to 7 mm maximum thickness. There may be mild mass effect of the sulci along the convexities and the ventricles. Differential diagnosis includes bilateral subdural hygromas or chronic subdural hematomas. These can be difficult to differentiate on CT scan. Consider MR for further evaluation which may be diagnostic. 2. Lobulated ossific masses along the frontal calvarium may be due to hyperostosis frontalis. A calcified lesion measuring 1.5 cm projecting from the left frontal calvarium may be due to a small calcified meningioma. Electronically Signed: Ty Sarkar MD at 3:06 EDT , Cervical Spine CT 08/14/22 02:08 IMPRESSION: 1. Multiple soft tissue density masses left lobe of the thyroid. Largest measures up to 2 cm. Recommend further evaluation with thyroid ultrasound. 2. Degenerative disc disease C5-6 and C6-7. No acute cervical spine abnormality. Electronically Signed: Ty Sarkar MD at 3:09 EDT , Discharge Plan Triage Chief Complaint: Headache Other Complaint: Wound ED Provider: Parish Goss Dx/Rx/DC Orders Clinical Impression: Meningioma, Headache, Hygroma Instructions: Understanding Headache Pain Prescriptions: New oxycodone-acetaminophen [Percocet] 5-325 mg tablet 1 tab PO Q6H 3 Days Qty: 12 0RF triamcinolone acetonide 0.5 % ointment 1 applic topical BID Qty: 15 0RF No Action insulin aspart U-100 [Novolog FlexPen U-100 Insulin] 100 unit/mL (3 mL) insulin pen 1 sliding scale dose subcut 3XD ergocalciferol (vitamin D2) 50,000 unit tablet 50,000 unit PO QWEEK meclizine 12.5 mg tablet 12.5 mg PO TID PRN (Reason: Vertigo) ondansetron 4 mg tablet,disintegrating 4 mg PO Q8H PRN (Reason: nausea and vomiting) Qty: 10 0RF amlodipine 5 mg tablet 10 mg DAILY insulin glargine [Lantus Solostar U-100 Insulin] 100 unit/mL (3 mL) insulin pen 28 unit SUBCUT QHS lovastatin 20 mg tablet 20 mg PO QHS magnesium gluconate [Mag-G] 27 mg magnesium (500 mg) tablet 27 mg DAILY Patient Comments: TAKE 1 TABLET BY MOUTH EVERY DAY ramipril 2.5 mg capsule 2.5 mg PO DAILY Hold Instructions: Resume on 06/08/21. tacrolimus 1 mg capsule 1 mg PO BID pantoprazole 40 mg tablet,delayed release (DR/EC) 40 mg PO QAM Qty: 90 3RF Primary Care Provider: Iza Fox Referrals: Iza Fox MD [Primary Care Provider] - Activity Restrictions/Additional Instructions: Follow up with [facility] neurosurgery, Dr. Chaparro Christensen MD. Call [phone] for appointment Disposition Disposition: Home, Self Care
--- NOTE | 2022-08-14 02:08 | CT_ITS ---
EXAM: CT CERVICAL SPINE WITHOUT INTRAVENOUS CONTRAST CLINICAL INDICATION: pain TECHNIQUE: Helically acquired images were obtained of the cervical spine without intravenous contrast. 2D reformatted images were reviewed. This CT exam was performed using one or more of the following dose reduction techniques: automated exposure control, adjustment of the mA and/or kV according to patient size, and/or use of iterative reconstruction technique. RADIATION DOSE: CTDIvol = 27.20 mGy, DLP = 599.53 mGy-cm COMPARISON: No relevant prior studies available. FINDINGS: VERTEBRAE: Spondylosis C5-6 with mild disc osteophyte complex. No spinal stenosis. Large anterior osteophytes in the lower cervical spine consistent with diffuse idiopathic skeletal hyperostosis. No fracture. No traumatic subluxation. No discrete lytic or blastic abnormality. Normal alignment. Normal craniocervical junction and cervicothoracic junction. DISCS/SPINAL CANAL/NEURAL FORAMINA: Fused C6-7 disc space. No critical stenosis. SOFT TISSUES: Unremarkable. No prevertebral soft tissue swelling. LYMPH NODES: Unremarkable. No cervical adenopathy. THYROID: Multiple soft tissue density masses left lobe of the thyroid. Largest measures up to 2 cm. LUNG APICES: Unremarkable as visualized. Clear. CT/Spine Cervical without Contras IMPRESSION: 1. Multiple soft tissue density masses left lobe of the thyroid. Largest measures up to 2 cm. Recommend further evaluation with thyroid ultrasound. 2. Degenerative disc disease C5-6 and C6-7. No acute cervical spine abnormality. Electronically Signed: Ty Sarkar MD at 3:09 EDT ,
[2022-08-14] MEDS: Metoclopramide 10 MG/2 ML Vial 5 MG IV (02:13)
[2022-08-14 02:15] LABS: Absolute Lymphocyte Count 1.93 X10^3/uL (0.83-4.51); Absolute Neutrophil Count 5.2 X10^3/uL (2.0-7.7); Basophil# 0.04 X10^3/uL; Basophil% 0.5 % (0-1); Eosinophil# 0.16 X10^3/uL; Hematocrit 44.4 % (37-47); Hemoglobin 14.4 g/dL (12.0-15.0); Lymphocyte # 1.93 X10^3/ul (0.83-4.51); Lymphocyte % 24.3 % (19-41); Mean Corp Hgb Conc 32.4 g/dL (32-36); Mean Corpuscular Hgb 27.9 pg (27.0-32.0); Mean Platelet Vol. 11.6 fl (6.2-12.0); Monocyte# 0.57 X10^3/uL; Monocyte% 7.2 % (0-10); NRBC Flagged by Analyzer 0 % (0-5); Neutrophil # 5.19 X10^3/uL (2.7-7.7); Neutrophil % 65.5 % (47-70); Platelet Count 192 K/mm3 (150-450); RBC Distribution Width CV 13.7 % (11.6-14.6); Red Blood Count 5.16 M/mm3 (4.2-5.4); White Blood Count 7.9 K/mm3 (4.4-11.0)
[2022-08-14] MEDS: Morphine 2 MG/ML Syringe IV (02:16)
[2022-08-14 02:20] LABS: Erythrocyte Sedimentation Rate 31 mm/hr (0-30)
[2022-08-14 03:05] VITALS: RESP 15; O2SAT 95
[2022-08-14 03:11] LABS: ALB/GLOB Ratio 0.7 RATIO (0.9-2.4); AST(SGOT) 35 U/L (15-37); Alanine Aminotransfer ALT/SGPT 33 U/L (13-56); Albumin, Serum 2.9 g/dL (3.2-5.0); Alkaline Phosphatase 198 U/L (45-117); Anion Gap 6 (5-15); BUN 21 mg/dL (7-18); BUN/Creat Ratio 13.4 RATIO (10-20); Calcium,Total 8.7 mg/dL (8.5-10.1); Chloride 105 mmol/L (98-107); Creatinine, Serum 1.57 mg/dL (0.55-1.02); EST Glomerular Filtration Rate 34 mL/min (>60); Est Glom Filt Rate - Afr Amer 41 mL/min (>60); Estimated Creatinine Clearance 23.86 ml/min; Globulin 4.4 g/dL (2.2-4.2); Glucose 188 mg/dL (74-106); Potassium 4.7 mmol/L (3.5-5.1); Protein, Total 7.3 g/dL (6.4-8.2); Sodium Level 134 mmol/L (136-145)
[2022-08-14] MEDS: DiphenhydrAMINE 50 MG/ML Syringe 12.5 MG IV (03:14)
[2022-08-14 04:07] VITALS: BP 191/78; PULSE 79; RESP 15; O2SAT 97
[2022-08-14] MEDS: oxyCODONE 5 MG Tablet PO (04:09)
== END 2022-08-14 04:37 | disposition home or self-care (01) ==
PROVIDERS: Emergency Provider Emergency Medicine; PCP Internal Medicine; Visit Provider Emergency Medicine
DX: D32.9 Benign neoplasm of meninges, unspecified (principal); R51.9 Headache, unspecified; D18.1 Lymphangioma, any site
CPT/HCPCS: 70450; 72125; 80053; 85025; 85652; 96374; 96375; 99285; J7040; A4216

== ENCOUNTER 2022-08-15 14:21 | Observation (INO) | payer MEDICARE, OTHER, SELFPAY ==
[2022-08-15 14:23] VITALS: BP 116/65; PULSE 46; RESP 14; TEMP 36.1; O2SAT 100
--- NOTE | 2022-08-15 14:56 | EKG12_ITS ---
Test Reason : WEAKNESS Blood Pressure : / mmHG Vent. Rate : 078 BPM Atrial Rate : 078 BPM P-R Int : 140 ms QRS Dur : 132 ms QT Int : 416 ms P-R-T Axes : 035 -77 -06 degrees QTc Int : 474 ms Normal sinus rhythm Left axis deviation Right bundle branch block Abnormal ECG Confirmed by HAI BAUER, DESIREE ([id number]), supervising editor news reel BRENNA JENSEN ([id number]) on 08/17/2022 10:20:41 AM Referred By: Confirmed By:DESIREE VALLES MD
--- NOTE | 2022-08-15 14:59 | EDS_ITS ---
HPI History of Present Illness Chief Complaint: Weakness Informant: patient and family (daughter x 2) Narrative Narrative: Patient has been having headaches for several days, she was seen here yesterday and had an abnormal CT, she was able to be safely discharged home to follow-up. She was discharged on Percocet, she has taken 2 but none today, she has been feeling very lethargic and pale, she vomited once today, was seen at a [facility] facility locally here and directed back here to the ER today. Family states the CT showed some type of fluid on the brain that she has not had before, and they are also concerned about incidental thyroid nodules that were seen on imaging here. She takes no anticoagulants. She states the headache is gone and she is feeling better there, the photophobia that she was having is better today, her blood pressure was 200s at home, here it is 116/65. She has been compliant with her medications. She denies having any abdominal pain right now. She has felt lightheaded today, no syncope. No chest pain, shortness of breath, or other unusual symptoms of angina such as neck or jaw discomfort although her posterior neck has been sore with movement from time to time, arm discomfort, tingling. 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 Wears glasses Home Medications amlodipine 5 mg tablet 10 mg DAILY 06/04/21 [History Last Taken 09/08/21] insulin glargine 100 unit/mL (3 mL) subcutaneous pen (Lantus Solostar U-100 Insulin) 28 unit subcut QHS Check with primary doctor 06/04/21 [History Last Taken Unknown] lovastatin 20 mg tablet 20 mg PO QHS 06/04/21 [History Last Taken Unknown] magnesium gluconate 27 mg magnesium (500 mg) tablet (Mag-G) 27 mg DAILY 06/04/21 [History Last Taken Unknown] ondansetron 4 mg disintegrating tablet 4 mg PO Q8H PRN nausea and vomiting #10 tabs 06/04/21 [Rx Last Taken Unknown] ramipril 2.5 mg capsule 2.5 mg PO DAILY 06/04/21 [History Last Taken 09/08/21] tacrolimus 1 mg capsule, immediate-release 1 mg PO BID 06/04/21 [History Last Taken 09/08/21] ergocalciferol (vitamin D2) 50,000 unit tablet 50,000 unit PO QWEEK 06/10/21 [History Last Taken Unknown] insulin aspart U-100 100 unit/mL (3 mL) subcutaneous pen (Novolog FlexPen U-100 Insulin aspart) 1 sliding scale dose subcut 3XD 06/10/21 [History Last Taken Unknown] meclizine 12.5 mg tablet 12.5 mg PO TID PRN Vertigo 06/10/21 [History Last Taken Unknown] pantoprazole 40 mg tablet,delayed release 40 mg PO QAM #90 tabs 12/06/21 [Rx Last Taken Unknown] oxycodone-acetaminophen 5 mg-325 mg tablet (Endocet) 1 tab PO Q6H 3 days #12 tabs 08/14/22 [Rx Last Taken Unknown] oxycodone-acetaminophen 5 mg-325 mg tablet (Percocet) 1 tab PO Q6H 3 days #12 tabs 08/14/22 [Rx Last Taken Unknown] triamcinolone acetonide 0.5 % topical cream 1 applic topical BID #15 grams 08/14/22 [Rx Last Taken Unknown] triamcinolone acetonide 0.5 % topical ointment 1 applic topical BID #15 grams 08/14/22 [Rx Last Taken Unknown] Allergy/AdvReac Type Severity Reaction Status Date / Time calcium carbonate AdvReac Rash Verified 08/15/22 14:22 [From Viactiv] cholecalciferol (vitamin D3) AdvReac Rash Verified 08/15/22 14:22 [From Viactiv] phytonadione (vitamin K1) AdvReac Rash Verified 08/15/22 14:22 [From Viactiv] Family History Other Diabetes Surgical History H/O: hysterectomy History of appendectomy History of bowel resection History of cardiac catheterization History of cholecystectomy History of dental surgery Hx of dilation and curettage Hx of LASIK Liver transplanted Social History Smoking Status: Never smoker ROS ROS ED Constitutional Constitutional ED: Reports malaise; Denies chills or fever(s) Eyes Eyes: Reports blurry vision bilateral (When headaches were present but gone better); Denies diplopia ENT ENT ED: Denies rhinorrhea or sore throat Cardiovascular Cardiovascular: Denies chest pain or palpitations Respiratory/Chest Respiratory/Chest: Denies cough or dyspnea Gastrointestinal Gastrointestinal: Reports nausea and vomiting; Denies abdominal pain or diarrhea Genitourinary Genitourinary ED: Denies dysuria or hematuria Musculoskeletal Musculoskeletal: Denies back pain or neck pain Integumentary Denies abscess or rash Neurologic Neurologic: Reports disequilibrium, headache(s) and other Details: Headaches resolved ; Denies paresthesias or weakness Psychiatric Psychiatric: Denies anxiety or suicidal thoughts EXAM Physical Exam Const Vital Signs: 08/15/22 14:23 Temperature 97 F L Temperature Source Temporal Pulse Rate 46 L Respiratory Rate 14 Blood Pressure 116/65 Blood Pressure Mean 82 Pulse Ox 100 Oxygen Delivery Method Room Air Positive well nourished and well developed General Appearance ED: well developed and NAD HEENT Reports moist mucous membranes normocephalic and atraumatic Eyes PERRL and EOMs intact bilaterally Neck full ROM and supple Resp normal respiratory effort and clear to auscultation bilaterally Cardio regular rate, regular rhythm and no murmurs Rate: other Other Details: Borderline bradycardia GI non-tender and non-distended Auscultation: normoactive bowel sounds Palpation: soft Back/Spine no CVA tenderness General Back: other FROM Extremity normal to inspection General Extremety ED: Negative for edema, pulses abnormal or tenderness General Extremity: Negative for edema or pulses abnormal Neuro oriented x3, CN's II-XII intact bilaterally and no sensory deficits noted Neuro Narrative: DTRs normal. No clonus. Going toes bilaterally. Normal akicur-qk-syiq and vtii-sv-gzej bilaterally. Sensorium / Orientation: awake and alert Motor Exam: strength 5/5 throughout Skin no rashes or lesions noted and no wounds MDM MDM MDM Narrative Medical decision making narrative: Patient given gentle IV fluids while waiting for some labs to return, BUN and creatinine are abnormal, these are usually so in her creatinine is not significantly worse than her baseline. Her sodium is 127 which is a significant change compared with 134 yesterday, she is not confused with this, unknown if this is simple hypovolemic hyponatremia due to being a little dehydrated because her appetite was poor the last day or 2, the vomiting may have been caused by the Percocet as I discussed with the family. I discussed the water on the brain CT that was done yesterday which actually does not show hydrocephalus, it showed bilateral hygromas with no acute hemorrhage. The physician apparently discussed with neurosurgery said these could be safely followed up as an outpatient, which I agree with. I did a TSH which returned within normal limits, family and patient were concerned about these new thyroid nodule seen on her CT of the neck. I reassured them that although an ultrasound is indicated, it is not indicated emergently and she is not clinically hypothyroid or hyperthyroid, and that normal TSH correlates with this. Her initial pulse was in the 40s when she was checked into the ED, patient states she was not near syncopal or syncopal at any point today even when she was vomiting. Therefore symptomatic bradycardia less likely, especially given that she has been in the 70s and 80s throughout the rest of her ED stay. Her EKG is unremarkable shows no acute signs of injury, and her high-sensitivity troponin returns well within normal limits at 14. Still waiting for her to provide a urinalysis to rule evaluate for possible urine infection. If that is negative, I discussed with the patient regarding seeing how she walks and feels after having the IV fluids which will hopefully increase her sodium. I also saw that the patient had a liver transplant, this was not initially disclosed to me until I saw her EMR so I am adding liver enzymes and an ammonia to rule out issues they are which I am not specifically suspecting right now. In talking with the family, she has not eaten or drank hardly anything in the past 5 days due to all of this. Given that and the fact that she lives alone, family was concerned about her safety and I think admitting her for further evaluation and treatment is reasonable. History & Record Review Discussion w/independent historian: Patient and Family Additional record(s) reviewed:: Prior ED visit Lab Data Attestation: I reviewed the patient's lab results. Labs: Laboratory Results - last 24 hr 08/15/22 15:20 WBC 8.4 RBC 5.55 H Hgb 15.6 H Hct 49.6 H MCV 89.4 MCH 28.1 MCHC 31.5 L RDW Std Deviation 44.5 H RDW Coeff of Tim 13.7 Plt Count 179 MPV 11.0 Immature Gran % (Auto) 0.500 Neut % (Auto) 69.3 Lymph % (Auto) 21.5 [place] % (Auto) 7.4 Eos % (Auto) 0.4 Baso % (Auto) 0.9 Absolute Neuts (auto) 5.9 Absolute Lymphs (auto) 1.81 Nucleated RBC % 0 Atypical Lymphocytes 2+ Platelet Estimate ADEQUATE RBC Morphology N CHROM Anisocytosis RARE Sodium 127 L Potassium 4.6 Chloride 101 Carbon Dioxide 20.0 L Anion Gap 6 BUN 23 H Creatinine 1.63 H Estim Creat Clear Calc 22.98 Est GFR (MDRD) Af Amer 39 L Est GFR (MDRD) Non-Af 32 L BUN/Creatinine Ratio 14.1 Glucose 204 H Calcium 8.9 Troponin I High Sens 14 TSH 0.88 Radiography Diagnostic Testing: Clinical Impression(s) from Imaging Studies Chest X-Ray 08/15/22 16:20 IMPRESSION: No definite acute or significant abnormality seen. Electronically Signed: Brandon Jalloh MD at 16:42 EDT , Rhythm Strip Rhythm Strip: Sinus Rhythm Rate: 75 Ectopy: None EKG Initial EKG: Attestation: I personally reviewed and interpreted this EKG as follows: Interpretation: Sinus Rhythm, No Acute Injury Pattern, RBBB, LAFB and Non- Specific ST Changes (lateral precordial leads) Prior EKG tracings: not available for review Prior: No Prior Management Discussion w/another healthcare provider: Hospitalist Discharge Plan Dx/Rx/DC Orders Clinical Impression: Generalized weakness, Hygroma, Acute hyponatremia, Dehydration Disposition Disposition: [facility]
--- NOTE | 2022-08-15 15:08 | NURSING ---
NO OLD EKGS
[2022-08-15 15:31] LABS: Absolute Lymphocyte Count 1.81 X10^3/uL (0.83-4.51); Absolute Neutrophil Count 5.9 X10^3/uL (2.0-7.7); Basophil# 0.08 X10^3/uL; Basophil% 0.9 % (0-1); Eosinophil# 0.03 X10^3/uL; Eosinophils% 0.4 % (0-5); Hematocrit 49.6 % (37-47); Hemoglobin 15.6 g/dL (12.0-15.0); Lymphocyte # 1.81 X10^3/ul (0.83-4.51); Lymphocyte % 21.5 % (19-41); Mean Corp Hgb Conc 31.5 g/dL (32-36); Mean Corpuscular Hgb 28.1 pg (27.0-32.0); Mean Corpuscular Volume 89.4 fL (81-99); Monocyte# 0.62 X10^3/uL; Monocyte% 7.4 % (0-10); NRBC Flagged by Analyzer 0 % (0-5); Neutrophil # 5.85 X10^3/uL (2.7-7.7); Neutrophil % 69.3 % (47-70); POSITIVE MORPHOLOGY YES; Platelet Count 179 K/mm3 (150-450); RBC Distribution Width CV 13.7 % (11.6-14.6); RBC Distribution Width SD 44.5 fl (35.1-43.9); Red Blood Count 5.55 M/mm3 (4.2-5.4); White Blood Count 8.4 K/mm3 (4.4-11.0)
[2022-08-15 15:46] LABS: Differential Indicated SCAN CRITERIA MET
[2022-08-15] MEDS: 0.9% Normal Saline 1,000 ML 250 ML IV ×2 (15:56→21:16)
[2022-08-15 15:57] VITALS: BMI 35.6
--- NOTE | 2022-08-15 16:20 | RAD_ITS ---
STUDY: X-RAY CHEST REASON FOR EXAM: Female, 82 years old. weakness TECHNIQUE: Single AP portable view of the chest. COMPARISON: None. FINDINGS: The lungs are clear and expanded. There is no demonstrated pleural abnormality. Normal size heart. Normal mediastinum and yogesh. Normal visualized pulmonary arteries. Normal visualized aortic arch and descending thoracic aorta. There are diffuse degenerative changes of the visualized thoracic spine. Normal visualized ribs, clavicles, and shoulders. There is no demonstrated abnormality of the visualized soft tissue structures of the upper abdomen. RAD/Chest 1 View (Portable) IMPRESSION: No definite acute or significant abnormality seen. Electronically Signed: Brandon Jalloh MD at 16:42 EDT ,
[2022-08-15 16:26] LABS: Anion Gap 6 (5-15); BUN 23 mg/dL (7-18); BUN/Creat Ratio 14.1 RATIO (10-20); Calcium,Total 8.9 mg/dL (8.5-10.1); Chloride 101 mmol/L (98-107); Creatinine, Serum 1.63 mg/dL (0.55-1.02); EST Glomerular Filtration Rate 32 mL/min (>60); Est Glom Filt Rate - Afr Amer 39 mL/min (>60); Estimated Creatinine Clearance 22.98 ml/min; Glucose 204 mg/dL (74-106); Potassium 4.6 mmol/L (3.5-5.1); Sodium Level 127 mmol/L (136-145); Thyroid Stim Hormone (TSH) 0.88 uIU/mL (0.358-3.74); Troponin-I HS 14 pg/mL (3.0-54.0)
[2022-08-15 16:29] LABS: Anisocytosis RARE; Atypical Lymphocyte 2+ %; Platelet Estimate ADEQUATE (ADEQ); Red Cell Morphology N CHROM NORMAL (NORM C&C)
--- NOTE | 2022-08-15 17:11 | ED.RN ---
ATTEMPTED TO EXPLAIN TO TWO BLOND FEMALE FAMILY MEMBERS THAT THERE WERE ONLY TWO FAMILY MEMBERS PER PT, THEY ASKED WHEN DID THIS CHANGE WE COULD HAVE MANY WE WANTED LAST NIGHT. ATTEMPTED EXPLAIN THAT THIS HAS BEEN THE RULE THAT I WOULD NEED TO SPEAK TO THE NURSE BACK THERE THAT I WAS NOT SURE WHAT WAS GOING, AT THE SAME TIME A POSSIBLE STROKE PT CAME IN AND I TOLD THEM I WOULD HAVE TO GET BACK TO THEM. THE FAMILY MEMBERS CALLED THIS RN MULTIPLE UNPLEASANT NAMES THEY WALKED OUT. WHILE THIS NURSE WAS TRIAGING ANOTHER PT, THE TWO FAMILY MEMBERS ALONG WITH A MALE FAMILY MEMBER WALKED IN, ACCORDING THE OTHER PT'S THAT HAD WITNESSED EVERYTHING, THEY HAD SOMEONE OPEN THE DOORS AND LET ALL 3 OF THEM BACK.
[2022-08-15 17:38] VITALS: BP 186/89; PULSE 79; RESP 18; TEMP 36.1; O2SAT 97
[2022-08-15 17:39] LABS: AST(SGOT) 24 U/L (15-37); Alanine Aminotransfer ALT/SGPT 33 U/L (13-56); Albumin, Serum 2.7 g/dL (3.2-5.0); Alkaline Phosphatase 186 U/L (45-117); Bilirubin, Direct 0.15 mg/dL (0.00-0.30); Globulin 4.1 g/dL (2.2-4.2); Protein, Total 6.8 g/dL (6.4-8.2)
[2022-08-15 17:47] LABS: Bacteria 0 SEEN /hpf (None Seen); Mucous, Urine 0 SEEN /hpf (<or=2+); Red Blood Cells-Urine 0 SEEN /hpf (0-5)
[2022-08-15 17:51] LABS: Ammonia < 10.0 umol/L (11-32)
--- NOTE | 2022-08-15 18:01 | NURSING ---
312 O[address] [place]NE[place] GENERAL WEAKNESS, HYPONATREMIA
[2022-08-15 18:17] LABS: Color, Urine Yellow (Yellow); Glucose, Dipstick 50 mg/dl (Normal); Ketone-Dipstick Negative (Negative); Leukocyte Esterase-Dipstick 25 /ul (Negative); Nitrite-Dipstick Negative (Negative); Occult Blood-Urine 25 /ul (Negative); Protein-Dipstick 500 mg/dl (Negative); Specific Gravity, Urine 1.015 (1.002-1.030); Urine Bilirubin Dipstick Negative (Negative); Urine Clarity Sl. Cloudy (Clear); Urine Urobilinogen Normal (Normal)
--- NOTE | 2022-08-15 18:26 | HP.PCM_ITS ---
HPI - General General Date of Admission: 08/15/22 Date of Service: 08/15/22 Chief Complaint: Generalized weakness HPI Narrative PREETHI THOMAS, is a 82 F who is status post liver transplant for liver cirrhosis and chronic kidney disease stage III. Presented to the hospital with a 5-day illness which started off as headache and neck pain with some transient neck stiffness and for which patient presented to the emergency department yesterday. Patient has also had photophobia for 1 day but denies any fever or chills. Denies any sick contacts or rash. Denied any upper respiratory symptoms. Head CT showed bilateral hygromas and meningioma. Patient does not recall any head trauma. Appetite has been poor and food and fluid intake has been quite diminished as well. [facility] Medical History Actinic keratitis SENA (acute kidney injury) Bloating Diabetes mellitus Diarrhea Diverticulitis Dysphagia Gastric reflux GERD (gastroesophageal reflux disease) History of renal disease History of rheumatic fever History of stress test Hx of atypical nevus Hypercholesteremia Hypertension Hypertension Insulin dependent diabetes mellitus Kidney disease Telogen effluvium Wears glasses Home Medications amlodipine 5 mg tablet 10 mg DAILY 06/04/21 [History Last Taken 09/08/21] insulin glargine 100 unit/mL (3 mL) subcutaneous pen (Lantus Solostar U-100 Insulin) 28 unit subcut QHS Check with primary doctor 06/04/21 [History Last Taken Unknown] lovastatin 20 mg tablet 20 mg PO QHS 06/04/21 [History Last Taken Unknown] magnesium gluconate 27 mg magnesium (500 mg) tablet (Mag-G) 27 mg DAILY 06/04/21 [History Last Taken Unknown] ondansetron 4 mg disintegrating tablet 4 mg PO Q8H PRN nausea and vomiting #10 tabs 06/04/21 [Rx Last Taken Unknown] ramipril 2.5 mg capsule 2.5 mg PO DAILY 06/04/21 [History Last Taken 09/08/21] tacrolimus 1 mg capsule, immediate-release 1 mg PO BID 06/04/21 [History Last Taken 09/08/21] ergocalciferol (vitamin D2) 50,000 unit tablet 50,000 unit PO QWEEK 06/10/21 [History Last Taken Unknown] insulin aspart U-100 100 unit/mL (3 mL) subcutaneous pen (Novolog FlexPen U-100 Insulin aspart) 1 sliding scale dose subcut 3XD 06/10/21 [History Last Taken Unknown] meclizine 12.5 mg tablet 12.5 mg PO TID PRN Vertigo 06/10/21 [History Last Taken Unknown] pantoprazole 40 mg tablet,delayed release 40 mg PO QAM #90 tabs 12/06/21 [Rx Last Taken Unknown] oxycodone-acetaminophen 5 mg-325 mg tablet (Endocet) 1 tab PO Q6H 3 days #12 tabs 08/14/22 [Rx Last Taken Unknown] oxycodone-acetaminophen 5 mg-325 mg tablet (Percocet) 1 tab PO Q6H 3 days #12 tabs 08/14/22 [Rx Last Taken Unknown] triamcinolone acetonide 0.5 % topical cream 1 applic topical BID #15 grams 10/29 [Rx Last Taken Unknown] triamcinolone acetonide 0.5 % topical ointment 1 applic topical BID #15 grams 08/14/22 [Rx Last Taken Unknown] Allergy/AdvReac Type Severity Reaction Status Date / Time calcium carbonate AdvReac Rash Verified 08/15/22 14:22 [From Viactiv] cholecalciferol (vitamin D3) AdvReac Rash Verified 08/15/22 14:22 [From Viactiv] phytonadione (vitamin K1) AdvReac Rash Verified 08/15/22 14:22 [From Viactiv] Family History Other Diabetes Surgical History H/O: hysterectomy History of appendectomy History of bowel resection History of cardiac catheterization History of cholecystectomy History of dental surgery Hx of dilation and curettage Hx of LASIK Liver transplanted Social History Smoking Status: Never smoker ROS ROS Narrative Denies any chest pain or shortness of breath. Patient does have bumps at the back of her scalp which was diagnosed as psoriasis several years ago. All other systems reviewed and essentially negative as above in the body of the history. Vital Signs Vital Signs Vital Signs: 08/15/22 14:23 08/15/22 17:38 Temperature 36.1 C L 36.1 C L Temperature Source Temporal Temporal Pulse Rate 46 L 79 Respiratory Rate 14 18 Blood Pressure 116/65 186/89 H Blood Pressure Mean 82 121 Pulse Ox 100 97 Oxygen Delivery Method Room Air Room Air Weight Weight: 94.8 kg Body Mass Index (BMI) 35.6 Physical Exam Narrative General exam. Elderly woman, mildly ill-appearing, mildly weak appearing HEENT. Oral mucosa is quite dry with no pallor or jaundice. Scarring lumps and bumps on the back of her head with some appearing fluid-filled. Neck. Neck is supple Heart. First and second heart sounds heard no murmurs Lungs. Clear to auscultation. Abdomen. 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 Conscious alert and oriented x3. Cranial nerves II to XII grossly intact. Speech fluent and compression is intact Extremities. No pedal edema. Results Medical Records Data Attestation: I reviewed the patient's medical records Lab / Micro Data Attestation: I reviewed the patient's lab results. 08/15/22 15:20 08/15/22 15:20 Labs: Laboratory Results - last 24 hr 08/15/22 15:20: WBC 8.4, RBC 5.55 H, Hgb 15.6 H, Hct 49.6 H, MCV 89.4, MCH 28.1, MCHC 31.5 L, RDW Std Deviation 44.5 H, RDW Coeff of Tim 13.7, Plt Count 179, MPV 11.0, Immature Gran % (Auto) 0.500, Neut % (Auto) 69.3, Lymph % (Auto) 21.5, [place] % (Auto) 7.4, Eos % (Auto) 0.4, Baso % (Auto) 0.9, Absolute Neuts (auto) 5.9, Absolute Lymphs (auto) 1.81, Nucleated RBC % 0, Atypical Lymphocytes 2+, Platelet Estimate ADEQUATE, RBC Morphology N CHROM, Anisocytosis RARE, Sodium 127 L, Potassium 4.6, Chloride 101, Carbon Dioxide 20.0 L, Anion Gap 6, BUN 23 H , Creatinine 1.63 H, Estim Creat Clear Calc 22.98, Est GFR (MDRD) Af Amer 39 L, Est GFR (MDRD) Non-Af 32 L, BUN/Creatinine Ratio 14.1, Glucose 204 H, Calcium 8.9, Troponin I High Sens 14, TSH 0.88 08/15/22 17:10: Total Bilirubin 0.50, Direct Bilirubin 0.15, AST 24, ALT 33, Alkaline Phosphatase 186 H, Ammonia < 10.0 L, Total Protein 6.8, Albumin 2.7 L, Globulin 4.1 Rhythm Strip Rhythm Strip: Sinus Rhythm Rate: 75 Ectopy: None Radiology Impression Chest X-Ray 08/15/22 16:20 IMPRESSION: No definite acute or significant abnormality seen. Electronically Signed: Brandon Jalloh MD at 16:42 EDT , Assessment & Plan Assessment/Plan (1) Generalized weakness: PLAN: Plan Assessment and plan 1. Nonspecific symptoms with generalized headache, transient photophobia and neck stiffness. Potentially this may have been a viral illness/viremia with aseptic meningitis. Symptoms appears to be improving already. Noted to have bilateral hygromas on plain CT. Doubtful that these are the cause of her symptoms as they are clearly chronic and her symptoms are acute. This can be monitored as well. We will get an MRI of the brain. Should symptoms not resolve consider lumbar puncture and CSF analysis. 2. Generalized weakness. Possibly secondary to dehydration and hyponatremia. We will treat both with intravenous fluids. Supportive care. Physical and Occupational Therapy evaluation. 3. Hyponatremia. Most likely secondary to dehydration/volume depletion with appropriate ADH secretion. Treatment has been #2 above. 4. Severe hypertension. Not well controlled. We will start patient on labetalol 100 mg twice daily. Uptitrate to optimal effectiveness. 5. CKD stage III. Stable. 6. Type 2 diabetes. Continue home dose of insulin. We will keep on just sliding scale insulin for mealtime until full intake better established. Charges/Coding Visit Charges Inpatient E&M: 50809 Init Hosp L3
[2022-08-15 18:31] VITALS: BMI 35.4
[2022-08-15 18:37] VITALS: BP 195/74; PULSE 81; RESP 16; TEMP 37.1; O2SAT 97
[2022-08-15 18:59] LABS: Renal Epithelial Cells 0-5 SEEN /hpf (0-5); Squamous Epithelial Cells - UA 0-5 SEEN /hpf (5-10); White Blood Cells 5-10 SEEN /hpf (0-5)
[2022-08-15] MEDS: 0.9% Normal Saline 1,000 ML 100 ML IV (21:17)
[2022-08-15 21:38] VITALS: BP 181/68; PULSE 84; RESP 20; TEMP 36.7; O2SAT 97
[2022-08-15] MEDS: Atorvastatin Calcium 10 MG Tablet 5 MG PO (21:43)
[2022-08-15] MEDS: Labetalol 100 MG Tablet PO (21:43)
[2022-08-15] MEDS: Insulin Glargine-YFGN 100 UNIT/ML Pen 28 UNIT SC (21:44)
[2022-08-15] MEDS: Tacrolimus Anhydrous 1 MG Capsule PO (21:53)
[2022-08-15 22:16] LABS: Bedside Glucose 197 mg/dL (74-106)
[2022-08-16 03:37] VITALS: BP 167/61; PULSE 74; RESP 20; TEMP 37; O2SAT 96
[2022-08-16] MEDS: 0.9% Normal Saline 1,000 ML 100 ML IV (03:42)
[2022-08-16 07:19] LABS: Absolute Lymphocyte Count 2.09 X10^3/uL (0.83-4.51); Absolute Neutrophil Count 4.2 X10^3/uL (2.0-7.7); Basophil# 0.04 X10^3/uL; Basophil% 0.6 % (0-1); Eosinophil# 0.08 X10^3/uL; Eosinophils% 1.1 % (0-5); Hematocrit 36.9 % (37-47); Lymphocyte # 2.09 X10^3/ul (0.83-4.51); Mean Corp Hgb Conc 32.5 g/dL (32-36); Mean Corpuscular Hgb 28.1 pg (27.0-32.0); Mean Corpuscular Volume 86.4 fL (81-99); Mean Platelet Vol. 11.1 fl (6.2-12.0); Monocyte# 0.54 X10^3/uL; Monocyte% 7.7 % (0-10); NRBC Flagged by Analyzer 0 % (0-5); Neutrophil % 60.3 % (47-70); POSITIVE MORPHOLOGY YES; Platelet Count 171 K/mm3 (150-450); RBC Distribution Width CV 13.9 % (11.6-14.6); RBC Distribution Width SD 43.3 fl (35.1-43.9); Red Blood Count 4.27 M/mm3 (4.2-5.4)
[2022-08-16 07:20] LABS: Bedside Glucose 136 mg/dL (74-106)
[2022-08-16 07:21] LABS: Differential Indicated SCAN CRITERIA MET
[2022-08-16 07:45] LABS: Differential Comment SCANNED
--- NOTE | 2022-08-16 07:50 | PCM.PN.HOSP ---
Reason for Visit Reason for Visit: Diagnoses Weakness (08/15/22) Subjective Subjective Patient admitted with headache and neck pain. Denies any chronic headache like migraine. Objective Data Objective Data Vital Signs: Vital Signs Temp Pulse Resp BP Pulse Ox O2 Del Method 98.6 F 74 20 H 167/61 H 96 Room Air 08/16/22 03:37 08/16/22 03:37 08/16/22 03:37 08/16/22 03:37 08/16/22 03:37 08/16/22 03:37 Oxygen Delivery Method Room Air Weight: 206 lb 2.436 oz Body Mass Index (BMI) 35.4 Intake & Output: Intake and Output for Last 24 Hours 08/14/22 08/15/22 08/16/22 23:59 23:59 23:59 Intake Total 1008.33 / 1008.33 641.67 / 641.67 Balance 1008.33 / 1008.33 641.67 / 641.67 Lab / Micro Data 08/16/22 06:20 08/16/22 06:20 Labs: Laboratory Results - last 24 hr 08/15/22 15:20: WBC 8.4, RBC 5.55 H, Hgb 15.6 H, Hct 49.6 H, MCV 89.4, MCH 28.1, MCHC 31.5 L, RDW Std Deviation 44.5 H, RDW Coeff of Tim 13.7, Plt Count 179, MPV 11.0, Immature Gran % (Auto) 0.500, Neut % (Auto) 69.3, Lymph % (Auto) 21.5, [place] % (Auto) 7.4, Eos % (Auto) 0.4, Baso % (Auto) 0.9, Absolute Neuts (auto) 5.9, Absolute Lymphs (auto) 1.81, Nucleated RBC % 0, Atypical Lymphocytes 2+, Platelet Estimate ADEQUATE, RBC Morphology N CHROM, Anisocytosis RARE, Sodium 127 L, Potassium 4.6, Chloride 101, Carbon Dioxide 20.0 L, Anion Gap 6, BUN 23 H, Creatinine 1.63 H, Estim Creat Clear Calc 22.98, Est GFR (MDRD) Af Amer 39 L, Est GFR (MDRD) Non-Af 32 L, BUN/Creatinine Ratio 14.1, Glucose 204 H, Calcium 8.9, Troponin I High Sens 14, TSH 0.88 08/15/22 17:10: Total Bilirubin 0.50, Direct Bilirubin 0.15, AST 24, ALT 33, Alkaline Phosphatase 186 H, Ammonia < 10.0 L, Total Protein 6.8, Albumin 2.7 L, Globulin 4.1 08/15/22 17:20: Urine Color Yellow, Urine Clarity Sl. Cloudy, Urine pH 6.0, Ur Specific [place] 1.015, Urine Protein 500 H, Urine Glucose (UA) 50 H, Urine Ketones Negative, Urine Occult Blood 25 H, Urine Nitrite Negative, Urine Bilirubin Negative, Urine Urobilinogen Normal, Ur Leukocyte Esterase 25 H, Urine RBC 0 SEEN, Urine WBC 5-10 SEEN, Ur Squamous Epith Cells 0-5 SEEN, Ur Renal Epithelial Cell 0-5 SEEN, Urine Bacteria 0 SEEN, Urine Mucus 0 SEEN 08/15/22 21:42: POC Glucose 197 H 08/16/22 06:20: WBC 7.0, RBC 4.27, Hgb 12.0, Hct 36.9 L, MCV 86.4, MCH 28.1, MCHC 32.5, RDW Std Deviation 43.3, RDW Coeff of Tim 13.9, Plt Count 171, MPV 11.1, Immature Gran % (Auto) 0.300, Neut % (Auto) 60.3, Lymph % (Auto) 30.0, [place] % (Auto) 7.7, Eos % (Auto) 1.1, Baso % (Auto) 0.6, Absolute Neuts (auto) 4.2, Absolute Lymphs (auto) 2.09, Nucleated RBC % 0, Differential Comment SCANNED 08/16/22 06:49: POC Glucose 136 H Radiography Diagnostic Testing: Radiology Impression Chest X-Ray 08/15/22 16:20 IMPRESSION: No definite acute or significant abnormality seen. Electronically Signed: Brandon Jalloh MD at 16:42 EDT , Rhythm Strip Rhythm Strip: Sinus Rhythm Rate: 75 Ectopy: None Physical Exam Narrative Seen and examined. Headache has resolved. Photophobia resolved. Patient started having neck pain and shoulder pain about 5 days ago and this progressed to headache. Daughter also concerned about fall. Physical exam General: Alert, Oriented x3, Cooperative HEENT: Atraumatic, PERRLA, EOMI, Normocephalic Oral: Oral mucosa moist. No Gingival or Mucosal Lesions/ Ulcerations Neck: Supple, No JVD, Negative Carotid Bruits Lungs: Air entry diminished in bilateral lung bases. No crepitation/rhonchi Cardiovascular: Regular rate, Regular Rhythm, Normal S1, Normal S2, No murmurs Abdomen: Bowel Sounds Present, Soft, Non Tender, Non-Distended : No renal angle tenderness. No suprapubic tenderness. Extremities: No edema, Capillary Refill Less than 3 Seconds Skin: No rashes, No breakdown Musculoskeletal: No Tenderness to Palpation of Joints or Extremities. Muscle strength 5/5 at knee and hip joints. Neurological: Cranial nerves II-XII grossly intact, DTR 2+/4 and Symmetrical, Neuro grossly intact Psych/Mental Status: Normal Affect, Appropriate. Assessment & Plan Assessment/Plan (1) Generalized weakness: PLAN: Plan Patient came to ED for headache and neck pain and neck stiffness for [address] head which she had recently. She also had photophobia. CT head showed bilateral hygromas and meningioma. Patient is post liver transplant Assessment and plan 1. 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 Does not have chronic headache history like migraine or tension headache. As per family, she is weak and might fall if she goes home today. CT images individually reviewed shows increased extra-axial fluid bilaterally along frontoparietal convexity measuring 7 mm in maximum thickness. Mild mass effect on the sulci along convexities and the ventricles reported. Differential include bilateral subdural hygroma or chronic CDH. Patient also has lobulated ossific masses along frontal calvarium probably hyperostosis frontalis. Calcified lesion 1.5 center projecting from the left frontal calvarium may be due to a small calcified meningioma. MRI brain was done which shows no evidence of acute or subacute ischemic infarct or acute intracranial abnormality. Completely ossified meningioma overlying left superior frontal gyrus with 1 the very minimal mass effect due to prominent CSF spaces overlying cerebral hemisphere convexity. I discussed about the MRI and CT scan finding to the patient and advised that she has calcified/ossified meningioma needs to follow-up with neurologist. Headache mild related to that. 2. Generalized weakness. Possibly secondary to dehydration and hyponatremia. We will treat both with intravenous fluids. Supportive care. Physical and Occupational Therapy evaluation. 3. 08/26: Hypovolemic hypotonic hyponatremia: Serum sodium 127 has improved to 136. 4. Severe hypertension. Not well controlled. We will start patient on labetalol 100 mg twice daily. Uptitrate to optimal effectiveness. 5. CKD stage G4: Patient was admitted with creatinine 1.63 improved to 1.5. Her baseline creatinine runs around 1.5. 6. Type 2 diabetes melitis: Continue home dose of insulin. Continue sliding scale insulin for mealtime until full intake better established. Laboratory Results 08/15/22 15:20: WBC 8.4, RBC 5.55 H, Hgb 15.6 H, Hct 49.6 H, MCV 89.4, MCH 28.1, MCHC 31.5 L, RDW Std Deviation 44.5 H, RDW Coeff of Tim 13.7, Plt Count 179, MPV 11.0, Immature Gran % (Auto) 0.500, Neut % (Auto) 69.3, Lymph % (Auto) 21.5, [place] % (Auto) 7.4, Eos % (Auto) 0.4, Baso % (Auto) 0.9, Absolute Neuts (auto) 5.9, Absolute Lymphs (auto) 1.81, Nucleated RBC % 0, Atypical Lymphocytes 2+, Platelet Estimate ADEQUATE, RBC Morphology N CHROM, Anisocytosis RARE, Sodium 127 L, Potassium 4.6, Chloride 101, Carbon Dioxide 20.0 L, Anion Gap 6, BUN 23 H, Creatinine 1.63 H, Estim Creat Clear Calc 22.98, Est GFR (MDRD) Af Amer 39 L, Est GFR (MDRD) Non-Af 32 L, BUN/Creatinine Ratio 14.1, Glucose 204 H, Calcium 8.9, Troponin I High Sens 14, TSH 0.88 08/15/22 17:10: Total Bilirubin 0.50, Direct Bilirubin 0.15, AST 24, ALT 33, Alkaline Phosphatase 186 H, Ammonia < 10.0 L, Total Protein 6.8, Albumin 2.7 L, Globulin 4.1 08/15/22 17:20: Urine Color Yellow, Urine Clarity Sl. Cloudy, Urine pH 6.0, Ur Specific [place] 1.015, Urine Protein 500 H, Urine Glucose (UA) 50 H, Urine Ketones Negative, Urine Occult Blood 25 H, Urine Nitrite Negative, Urine Bilirubin Negative, Urine Urobilinogen Normal, Ur Leukocyte Esterase 25 H, Urine RBC 0 SEEN, Urine WBC 5-10 SEEN, Ur Squamous Epith Cells 0-5 SEEN, Ur Renal Epithelial Cell 0-5 SEEN, Urine Bacteria 0 SEEN, Urine Mucus 0 SEEN 08/15/22 21:42: POC Glucose 197 H 08/16/22 06:20: WBC 7.0, RBC 4.27, Hgb 12.0, Hct 36.9 L, MCV 86.4, MCH 28.1, MCHC 32.5, RDW Std Deviation 43.3, RDW Coeff of Tim 13.9, Plt Count 171, MPV 11.1, Immature Gran % (Auto) 0.300, Neut % (Auto) 60.3, Lymph % (Auto) 30.0, [place] % (Auto) 7.7, Eos % (Auto) 1.1, Baso % (Auto) 0.6, Absolute Neuts (auto) 4.2, Absolute Lymphs (auto) 2.09, Nucleated RBC % 0, Differential Comment SCANNED, ESR 25, Sodium 136, Potassium 4.0, Chloride 108 H, Carbon Dioxide 24.0, Anion Gap 4 L, BUN 24 H, Creatinine 1.55 H, Estim Creat Clear Calc 24.16, Est GFR (MDRD) Af Amer 41 L, Est GFR (MDRD) Non-Af 34 L, BUN/Creatinine Ratio 15.5, Glucose 136 H, Calcium 7.7 L, Total Bilirubin 0.30, AST 24, ALT 25, Alkaline Phosphatase 149 H, C-React Prot Ext Range 3.11 H, Total Protein 5.8 L, Albumin 2.2 L, Globulin 3.6, Albumin/Globulin Ratio 0.6 L 08/16/22 06:49: POC Glucose 136 H 08/16/22 11:23: POC Glucose 239 H Charges/Coding Visit Charges Inpatient E&M: 76962 Subs Hosp L2
[2022-08-16 07:54] LABS: ALB/GLOB Ratio 0.6 RATIO (0.9-2.4); AST(SGOT) 24 U/L (15-37); Alanine Aminotransfer ALT/SGPT 25 U/L (13-56); Albumin, Serum 2.2 g/dL (3.2-5.0); Alkaline Phosphatase 149 U/L (45-117); Anion Gap 4 (5-15); BUN 24 mg/dL (7-18); BUN/Creat Ratio 15.5 RATIO (10-20); CRP 3.11 mg/L (0.0-3.0); Calcium,Total 7.7 mg/dL (8.5-10.1); Chloride 108 mmol/L (98-107); Creatinine, Serum 1.55 mg/dL (0.55-1.02); EST Glomerular Filtration Rate 34 mL/min (>60); Est Glom Filt Rate - Afr Amer 41 mL/min (>60); Estimated Creatinine Clearance 24.16 ml/min; Globulin 3.6 g/dL (2.2-4.2); Glucose 136 mg/dL (74-106); Protein, Total 5.8 g/dL (6.4-8.2); Sodium Level 136 mmol/L (136-145)
[2022-08-16 08:38] LABS: Erythrocyte Sedimentation Rate 25 mm/hr (0-30)
--- NOTE | 2022-08-16 09:00 | MRI_ITS ---
EXAM: MR HEAD WITHOUT INTRAVENOUS CONTRAST CLINICAL INDICATION: Headache. TECHNIQUE: Multiplanar and multisequence MR images of the brain were obtained without intravenous contrast. COMPARISON: CT head without contrast 08/14/2022. FINDINGS: BRAIN AND EXTRA-AXIAL SPACES: Completely ossified meningioma overlying the left superior frontal gyrus parasagittal convexity is unchanged. There is only very minimal mass effect on the left superior frontal gyrus due to prominent CSF spaces overlying the cerebral hemispheric convexities. Multiple small subcortical white matter more than posterior periatrial white matter T2 FLAIR hyperintensity foci are chronic white matter ischemic changes. No intra- or extra-axial hemorrhage. Posterior fossa structures are unremarkable. Basal cisterns are patent. No diffusion restriction to suspect acute or subacute ischemic infarct. SELLA: Unremarkable. Normal sella turcica, pituitary gland, infundibular stalk, optic chiasm and hypothalamus. AUDITORY SYSTEM: Unremarkable. The internal auditory canals are patent. BONES/JOINTS: Unremarkable. No discrete lytic or blastic abnormalities. SINUSES: Unremarkable as visualized. Clear. MASTOID AIR CELLS: Unremarkable as visualized. Clear. ORBITS: Unremarkable as visualized. Both globes, extraocular muscles, optic nerves and retrobulbar fat appear unremarkable. VASCULATURE: Unremarkable as visualized. Normal flow voids in the major intracranial circulation. MRI/Brain without Contrast IMPRESSION: 1. No MRI evidence of acute or subacute ischemic infarct or acute intracranial abnormality. 2. Chronic subcortical white matter ischemic changes more than posterior periatrial chronic white matter ischemic changes in both cerebral hemispheres. 3. Completely ossified meningioma overlying the left superior frontal gyrus with only very minimal mass effect due to prominent CSF spaces overlying the cerebral hemisphere convexity. 4. No significant interval change when compared to CT head scan of 08/14/2022. Electronically Signed: Ze Mcdonald MD at 9:51 EDT ,
--- NOTE | 2022-08-16 09:54 | NURSING ---
back from MRI at this time. Eatting breakfast.
[2022-08-16 09:55] VITALS: BP 129/98; PULSE 74; RESP 16; TEMP 37.1; O2SAT 98
[2022-08-16] MEDS: amLODIPine 10 MG Tablet PO (09:58)
[2022-08-16] MEDS: Labetalol 100 MG Tablet PO ×2 (09:58→21:36)
[2022-08-16] MEDS: Ramipril 2.5 MG Capsule PO (09:58)
[2022-08-16] MEDS: Enoxaparin 30 MG/0.3 ML Syringe SC (09:59)
[2022-08-16] MEDS: Tacrolimus Anhydrous 1 MG Capsule PO ×2 (09:59→21:36)
[2022-08-16 11:46] LABS: Bedside Glucose 239 mg/dL (74-106)
--- NOTE | 2022-08-16 11:47 | CASEMGMT ---
Social Work Pt states she has a living will and a health care POA naming her daughter Zoey Perez. Pt notified documents are not on file and requested they be brought in for scanning into the EMR. JULI Bryant
[2022-08-16] MEDS: Insulin Lispro 100 UNIT/ML INSULN.PEN SC ×2 (11:48→16:27)
--- NOTE | 2022-08-16 12:52 | CHAPLAIN ---
Type of Pastoral Visit _x__ Initial Visit ___ Follow-up Visit ___ On-call Visit ___ General Patient Visit ___ Spiritual Assessment ___ Family Conference ___ Bereavement ___ Rapid Response ___ Code Blue ___ Other (describe below) Pastoral Care Referral From _x__ Patient ___ Family ___ Nurse ___ Physician ___ Post Splitter ___ Putty Remover ___ Other (describe below) Sacrament/Intervention _x__ Active listening ___ Anointing ___ Anabaptism ___ Bereavement ___ Communion _x__ Izzy exploration ___ _x__ Life review _x__ Prayer ___ Reconciliation ___ Sacrament of Sick _x__ Supportive presence ___ Wedding ___ Other (describe below) Pastoral Comments patient reviews her health history, the current status of her health, and how she feels so weak and tired; pt has concerns about her future; pt states that God has been so good to me and helped me in many ways; pt relies on her izzy to cope with her situation and life; pt welcomes prayer and presence;
--- NOTE | 2022-08-16 14:50 | CASEMGMT ---
DENICE PANDEY NOTE: Informed by Dr Humphries and RNAdela, that family has concerns re:pt's weakness and concern she is going to fall once returning home. Reviewed therapy notes. Pt ambulated 300 ft w/use of walker and no additional ther recommended. DENICE PANDEY to room. Introduced self and role. Pt states she is indep @ her baseline and feels she will be safe returning home today. She initially declined wanting HHC. She states she would like to have her DIL stay w/the night w/her tonight, stating she would feel better having her there. Pt gave permission for DENICE PANDEY to call her family to discuss discharge planning. Calls to both Binh and Zoey placed per pt request. Per Binh, Tyra is unable to stay overnight w/pt tonight. Pt made aware and states will call her friend Erin to see if she can stay her. Both Binh and Zoey voice concerns to DENICE PANDEY w/pt d/c'ing home today and requesting pt stay one more night, stating they do not feel she will be safe w/how weak she has been. They were both made aware pt did well w/therapy today and that therapy felt pt is safe to d/c home. They state pt lives alone and that friend, Erin, is elderly and is not able to assist pt much. They do not have anyone else available to stay w/pt overnight. Dr Humphries made aware of family's concerns w/discharging home today. He states will plan to d/c pt home tomorrow. Son, Binh, made aware. Both Binh and Zoey made aware pt declined wanting HHC, but they both state they feel HHC would be beneficial. Discussed MCR's criteria for being home-bound. They voice understanding and feel pt will be homebound for awhile once she returns home. Pt made aware son and dtr would like HHC for her and she is agreeable now. A list of HHC providers including quality and resource use data and consistent with the patient?s preferred geographic region, medical needs, and insurance network were provided from the [employer] Guide given to pt. Pt states to have family choose HHC preferences. Call to Binh per Zoey's request. He chooses [facility] as 1st preference. Call to Lori @ [facility] and referral made for HHC: SN and PT/OT. They are able to accept pt w/SOC slated for 08/18. Pt made aware. Pt verifies she has a walker at home and denies having other DME needs. Son requests info on Assisted Living to have for a reference in the future. Mayela FLEMING, made aware. Libia BSN RN CM
[2022-08-16] MEDS: 0.9% Normal Saline 1,000 ML 50 ML IV (16:03)
[2022-08-16] MEDS: Insulin Lispro 100 UNIT/ML INSULN.PEN 10 UNIT SC (16:26)
--- NOTE | 2022-08-16 16:32 | CASEMGMT ---
Social Work Per request of pt family, Assisted Living information provided to ptShannan BUSTOS
[2022-08-16 16:34] VITALS: BP 158/56; PULSE 64; RESP 19; TEMP 36.8; O2SAT 96
--- NOTE | 2022-08-16 17:00 | CASEMGMT ---
DENICE PANDEY NOTE: [facility] form explained re: Observation status for treatment of weakness and hypokalemia.? Explained hospitalization will be paid per?her insurance policy for Outpatient billing?and condition will continue to be evaluated for Inpt necessity. Also let pt know that [facility] sends paper in the billing packet with their phone number if questions arise. Discussed Pharmacy section of [facility] form and self administered medication guideline.? Pt verbalizes understanding and does not have further questions. ?Form signed, copy made and placed in chart, and original given to pt. Libia SOLITARIO RN CM
[2022-08-16 17:14] LABS: Bedside Glucose 160 mg/dL (74-106)
[2022-08-16 21:33] VITALS: BP 159/51; PULSE 76; RESP 18; TEMP 37.1; O2SAT 94
[2022-08-16] MEDS: Atorvastatin Calcium 10 MG Tablet 5 MG PO (21:35)
[2022-08-16] MEDS: 0.9% Saline Lock 10 ML Syringe IV (21:37)
[2022-08-16] MEDS: Insulin Glargine-YFGN 100 UNIT/ML Pen 28 UNIT SC (21:41)
[2022-08-16 22:51] LABS: Bedside Glucose 204 mg/dL (74-106)
[2022-08-17 04:09] VITALS: BP 178/51; PULSE 72; RESP 20; TEMP 36.8; O2SAT 95
[2022-08-17] MEDS: Insulin Lispro 100 UNIT/ML INSULN.PEN 10 UNIT SC (07:44)
[2022-08-17 08:04] LABS: Bedside Glucose 118 mg/dL (74-106)
[2022-08-17] MEDS: Enoxaparin 30 MG/0.3 ML Syringe SC (09:26)
[2022-08-17] MEDS: Labetalol 100 MG Tablet PO (09:27)
[2022-08-17] MEDS: Tacrolimus Anhydrous 1 MG Capsule PO (09:27)
[2022-08-17] MEDS: Ramipril 2.5 MG Capsule PO (09:27)
[2022-08-17] MEDS: amLODIPine 10 MG Tablet PO (09:27)
[2022-08-17 10:00] VITALS: BP 151/59; PULSE 72; RESP 18; TEMP 36.7; O2SAT 97
--- NOTE | 2022-08-17 10:01 | DCINST_ITS ---
Discharge Instructions Diet Discharge Diet: No restrictions Activity Discharge Activity: Return to Normal Activity Weight Bearing Status: Weight bearing as tolerated Dressing / Incision Call your doctor if you observe: Fever of 101 or Higher, Coldness, Increased Pain, Numbness or Tingling, Change in Color, Inability to urinate, Inability to have a bowel movement, Using more than 1 pad per hour, Shortness of breath, Dizziness, Fainting spells, Swelling in the ankles, Chest pain, Prolonged hiccupping, Increased palpitations (irregular heartbeat) and Calf discomfort Follow Up Care When: IN 2 WEEKS Test Results: Test results from this visit will be discussed in further detail at your follow- up appointment, if applicable. Discharge Plan Admission Admit Date/Time: 08/15/22 18:03 Attending Provider: Milad Humphries Primary Care Provider: Iza Fox Consulting Providers: Ramana Marie Instructions Additional Instructions / Restrictions: Can follow with her neurologist Dr. Tio Newell. Needs appointment in 1 month. Discharge Orders/Prescriptions Prescriptions: New amlodipine 10 mg Tablet 10 mg PO DAILY 30 Days Qty: 30 0RF Continued insulin aspart U-100 [Novolog FlexPen U-100 Insulin] 100 unit/mL (3 mL) insulin pen 1 sliding scale dose subcut 3XD ergocalciferol (vitamin D2) 50,000 unit tablet 50,000 unit PO QWEEK meclizine 12.5 mg tablet 12.5 mg PO TID PRN (Reason: Vertigo) ondansetron 4 mg tablet,disintegrating 4 mg PO Q8H PRN (Reason: nausea and vomiting) Qty: 10 0RF insulin glargine [Lantus Solostar U-100 Insulin] 100 unit/mL (3 mL) insulin pen 28 unit SUBCUT QHS lovastatin 20 mg tablet 20 mg PO QHS magnesium gluconate [Mag-G] 27 mg magnesium (500 mg) tablet 27 mg PO DAILY Patient Comments: TAKE 1 TABLET BY MOUTH EVERY DAY ramipril 2.5 mg capsule 5 mg PO DAILY Hold Instructions: Resume on 06/08/21. Patient Comments: takes 5 mg daily tacrolimus 1 mg capsule 1 mg PO BID oxycodone-acetaminophen [Percocet] 5-325 mg tablet 1 tab PO Q6H 3 Days Qty: 12 0RF triamcinolone acetonide 0.5 % ointment 1 applic topical BID Qty: 15 0RF pantoprazole 40 mg tablet,delayed release (DR/EC) 40 mg PO QAM Qty: 90 3RF Discontinued amlodipine 5 mg tablet 2.5 mg PO DAILY oxycodone-acetaminophen [Endocet] 5-325 mg tablet 1 tab PO Q6H 3 Days Qty: 12 0RF triamcinolone acetonide 0.5 % cream 1 applic topical BID Qty: 15 0RF Referrals / Follow Up: Iza Fox MD [Primary Care Provider] - Franck Guillaume MD [Non-Staff -Ordering Privileges] - 12/19/22 10:00 am Disposition Disposition (needs filled in before D/C Order can be placed): Home Health Service
--- NOTE | 2022-08-17 11:42 | PCM.DC.SUM ---
Providers Date of Admission: 08/15/22 Date of Discharge: 08/17/22 Primary Care Physician: Dr. Iza Fox MD Reason For Visit: WEAKNESS, HYPONATREMIA Diagnosis Discharge Diagnosis (1) Generalized weakness: Status: Acute Code(s): R53.1 - Weakness Plan Patient came to ED for headache and neck pain and neck stiffness for [address] head which she had recently. She also had photophobia. CT head showed bilateral hygromas and meningioma. Patient is post liver transplant Assessment and plan 1. 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 Does not have chronic headache history like migraine or tension headache. As per family, she is weak and might fall if she goes home today. CT images individually reviewed shows increased extra-axial fluid bilaterally along frontoparietal convexity measuring 7 mm in maximum thickness. Mild mass effect on the sulci along convexities and the ventricles reported. Differential include bilateral subdural hygroma or chronic CDH. Patient also has lobulated ossific masses along frontal calvarium probably hyperostosis frontalis. Calcified lesion 1.5 center projecting from the left frontal calvarium may be due to a small calcified meningioma. MRI brain was done which shows no evidence of acute or subacute ischemic infarct or acute intracranial abnormality. Completely ossified meningioma overlying left superior frontal gyrus with very minimal mass effect due to prominent CSF spaces overlying cerebral hemisphere convexity. I discussed about the MRI and CT scan finding to the patient and advised that she has calcified/ossified meningioma needs to follow-up with neurologist within 1 month. Headache might be related to that. 08/17: CT and MRI findings discussed again with the patient. Patient does not have headache, blurry vision, focal weakness, language deficit/dysphagia, dysarthria, diplopia or loss of field of vision. Headache has resolved.Patient did not have nausea or vomiting or signs of increased intracranial pressure. GCS 15. Advised to follow-up with neurologist either Dr. Guillaume or Dr. Newell within 1 month which ever is sooner. Discussed with the charge nurse to make early appointment. 2. Generalized weakness. Possibly secondary to dehydration and hyponatremia. We will treat both with intravenous fluids. Supportive care. Physical and Occupational Therapy evaluation. 08/17: PT and OT was done. Patient does not want to go to detention. Home health 3. 08/26: Hypovolemic hypotonic hyponatremia: Serum sodium 127 has improved to 136. 08/17 hyponatremia resolved. 4. Severe hypertension. Not well controlled. We will start patient on labetalol 100 mg twice daily. Uptitrate to optimal effectiveness. 08/17: Blood pressure is high. Patient on ramipril 5 mg daily.. Amlodipine dose increased to 10 mg daily. Follow-up with PCP. 5. CKD stage G4: Patient was admitted with creatinine 1.63 improved to 1.5. Her baseline creatinine runs around 1.5. 6. Type 2 diabetes melitis: Continue home dose of insulin. Continue sliding scale insulin for mealtime until full intake better established. Laboratory Results 08/16/22 16:25: POC Glucose 160 H 08/16/22 21:39: POC Glucose 204 H 08/17/22 07:43: POC Glucose 118 H Discharge medication reconciliation done. Discharge follow-up instructions completed. Discharge process discussed with the patient and all questions were answered to patient's satisfaction. Total time spent, exact 35 minutes on discharge meds reconciliation, examination, coordination of care with nurses and ancillary staff, review of imaging and blood test and discussion with the patient on follow-up instructions. Medications at Discharge Home Medications insulin glargine 100 unit/mL (3 mL) subcutaneous pen (Lantus Solostar U-100 Insulin) 28 unit subcut QHS Check with primary doctor 06/04/21 lovastatin 20 mg tablet 20 mg PO QHS 06/04/21 magnesium gluconate 27 mg magnesium (500 mg) tablet (Mag-G) 27 mg PO DAILY supplement 06/04/21 ondansetron 4 mg disintegrating tablet 4 mg PO Q8H PRN nausea and vomiting #10 tabs 06/04/21 ramipril 2.5 mg capsule 5 mg PO DAILY 06/04/21 tacrolimus 1 mg capsule, immediate-release 1 mg PO BID 06/04/21 ergocalciferol (vitamin D2) 50,000 unit tablet 50,000 unit PO QWEEK 06/10/21 insulin aspart U-100 100 unit/mL (3 mL) subcutaneous pen (Novolog FlexPen U-100 Insulin aspart) 1 sliding scale dose subcut 3XD 06/10/21 meclizine 12.5 mg tablet 12.5 mg PO TID PRN Vertigo 06/10/21 pantoprazole 40 mg tablet,delayed release 40 mg PO QAM #90 tabs 12/06/21 oxycodone-acetaminophen 5 mg-325 mg tablet (Percocet) 1 tab PO Q6H 3 days #12 tabs 08/14/22 triamcinolone acetonide 0.5 % topical ointment 1 applic topical BID #15 grams 08/14/22 amlodipine 10 mg tablet 10 mg PO DAILY 30 days #30 tabs 08/17/22 Physical Exam Narrative Seen and examined. Headache has resolved. Photophobia resolved. Physical exam General: Alert, Oriented x3, Cooperative HEENT: Atraumatic, PERRLA, EOMI, Normocephalic. Field of vision intact. Oral: Oral mucosa moist. No Gingival or Mucosal Lesions/ Ulcerations Neck: Supple, No JVD, Negative Carotid Bruits Lungs: Air entry diminished in bilateral lung bases. No crepitation/rhonchi Cardiovascular: Regular rate, Regular Rhythm, Normal S1, Normal S2, No murmurs Abdomen: Bowel Sounds Present, Soft, Non Tender, Non-Distended : No renal angle tenderness. No suprapubic tenderness. Extremities: No edema, Capillary Refill Less than 3 Seconds Skin: No rashes, No breakdown Musculoskeletal: No Tenderness to Palpation of Joints or Extremities. Muscle strength 5/5 at knee and hip joints. Neurological: Cranial nerves II-XII grossly intact, DTR 2+/4 and Symmetrical, Neuro grossly intact. GCS 15. No focal neurological deficit. Psych/Mental Status: Normal Affect, Appropriate. Weight / BMI Weight Weight: 206 lb 2.436 oz Body Mass Index (BMI) 35.4 ABG / Lab / Microbiology Data 08/16/22 06:20 08/16/22 06:20 Laboratory: Laboratory Results - last 24 hr 08/16/22 11:23: POC Glucose 239 H 08/16/22 16:25: POC Glucose 160 H 08/16/22 21:39: POC Glucose 204 H 08/17/22 07:43: POC Glucose 118 H D/C Instructions Discharge Diet: No restrictions Weight Bearing Status: Weight bearing as tolerated Call your doctor if you observe: Fever of 101 or Higher, Coldness, Increased Pain, Numbness or Tingling, Change in Color, Inability to urinate, Inability to have a bowel movement, Using more than 1 pad per hour, Shortness of breath, Dizziness, Fainting spells, Swelling in the ankles, Chest pain, Prolonged hiccupping, Increased palpitations (irregular heartbeat) and Calf discomfort When: IN 2 WEEKS Meaningful Use Info Meaningful Use Diagnoses (Choose all that apply): None applicable Discharge Plan Admission Admit Date/Time: 08/15/22 18:03 Attending Provider: Milad Humphries Primary Care Provider: Iza Fox Consulting Providers: Ramana Marie Instructions Additional Instructions / Restrictions: Can follow with her neurologist Dr. Tio Newell. Needs appointment in 1 month. Discharge Orders/Prescriptions Prescriptions: New amlodipine 10 mg Tablet 10 mg PO DAILY 30 Days Qty: 30 0RF Continued insulin aspart U-100 [Novolog FlexPen U-100 Insulin] 100 unit/mL (3 mL) insulin pen 1 sliding scale dose subcut 3XD ergocalciferol (vitamin D2) 50,000 unit tablet 50,000 unit PO QWEEK meclizine 12.5 mg tablet 12.5 mg PO TID PRN (Reason: Vertigo) ondansetron 4 mg tablet,disintegrating 4 mg PO Q8H PRN (Reason: nausea and vomiting) Qty: 10 0RF insulin glargine [Lantus Solostar U-100 Insulin] 100 unit/mL (3 mL) insulin pen 28 unit SUBCUT QHS lovastatin 20 mg tablet 20 mg PO QHS magnesium gluconate [Mag-G] 27 mg magnesium (500 mg) tablet 27 mg PO DAILY Patient Comments: TAKE 1 TABLET BY MOUTH EVERY DAY ramipril 2.5 mg capsule 5 mg PO DAILY Hold Instructions: Resume on 06/08/21. Patient Comments: takes 5 mg daily tacrolimus 1 mg capsule 1 mg PO BID oxycodone-acetaminophen [Percocet] 5-325 mg tablet 1 tab PO Q6H 3 Days Qty: 12 0RF triamcinolone acetonide 0.5 % ointment 1 applic topical BID Qty: 15 0RF pantoprazole 40 mg tablet,delayed release (DR/EC) 40 mg PO QAM Qty: 90 3RF Discontinued amlodipine 5 mg tablet 2.5 mg PO DAILY oxycodone-acetaminophen [Endocet] 5-325 mg tablet 1 tab PO Q6H 3 Days Qty: 12 0RF triamcinolone acetonide 0.5 % cream 1 applic topical BID Qty: 15 0RF Referrals / Follow Up: Iza Fox MD [Primary Care Provider] - Franck Guillaume MD [Non-Staff -Ordering Privileges] - 12/19/22 10:00 am Disposition Disposition (needs filled in before D/C Order can be placed): Home Health Service Charges/Coding Visit Charges Inpatient E&M: 17236 Disch Hosp >30min
--- NOTE | 2022-08-17 12:02 | PHA.DC.MR.R ---
Pharmacy [place] Med Reconciliation Pharmacy Service has performed discharge medication reconciliation for this patient. The patient's discharge medication list was reviewed for discrepancies and discrepancies were resolved. Medications at Discharge Home Medications insulin glargine 100 unit/mL (3 mL) subcutaneous pen (Lantus Solostar U-100 Insulin) 28 unit subcut QHS Check with primary doctor 06/04/21 lovastatin 20 mg tablet 20 mg PO QHS 06/04/21 magnesium gluconate 27 mg magnesium (500 mg) tablet (Mag-G) 27 mg PO DAILY supplement 06/04/21 ondansetron 4 mg disintegrating tablet 4 mg PO Q8H PRN nausea and vomiting #10 tabs 06/04/21 ramipril 2.5 mg capsule 5 mg PO DAILY 06/04/21 tacrolimus 1 mg capsule, immediate-release 1 mg PO BID 06/04/21 ergocalciferol (vitamin D2) 50,000 unit tablet 50,000 unit PO QWEEK 06/10/21 insulin aspart U-100 100 unit/mL (3 mL) subcutaneous pen (Novolog FlexPen U-100 Insulin aspart) 1 sliding scale dose subcut 3XD 06/10/21 meclizine 12.5 mg tablet 12.5 mg PO TID PRN Vertigo 06/10/21 pantoprazole 40 mg tablet,delayed release 40 mg PO QAM #90 tabs 12/06/21 oxycodone-acetaminophen 5 mg-325 mg tablet (Percocet) 1 tab PO Q6H 3 days #12 tabs 08/14/22 triamcinolone acetonide 0.5 % topical ointment 1 applic topical BID #15 grams 08/14/22 amlodipine 10 mg tablet 10 mg PO DAILY 30 days #30 tabs 08/17/22
--- NOTE | 2022-08-17 12:05 | CM.UR ---
DENICE PANDEY NOTE: Discharge order is in. Message sent to Lori @ [facility] via Backline to notify her of this. DENICE PANDEY to room. Pt states she feels stronger today than yesterday and feels safe to return home. She is aware [facility] able to accept her and SOC slated for tomorrow and that someone from [facility] should be contacting her to schedule this. She voices understanding. She states her DIL will be in around 3:30 PM today to take her home. Libia SOLITARIO RN, CM
[2022-08-17 12:06] LABS: Bedside Glucose 116 mg/dL (74-106)
--- NOTE | 2022-08-17 12:07 | NURSING ---
off unit for procedure in radiology
== END 2022-08-17 16:26 | disposition home health service (06) ==
LOC: ED 17:37 → MS3 18:21
PROVIDERS: Admitting Provider Internal Medicine; Emergency Provider Emergency Medicine; PCP Internal Medicine; Visit Provider Internal Medicine
DX: R51.9 Headache, unspecified (principal); Z94.4 Liver transplant status; E11.22 Type 2 diabetes mellitus with diabetic chronic kidney disease; N18.4 Chronic kidney disease, stage 4 (severe); D32.9 Benign neoplasm of meninges, unspecified; Z79.4 Long term (current) use of insulin; E87.1 Hypo-osmolality and hyponatremia; D18.1 Lymphangioma, any site; E86.0 Dehydration; E78.00 Pure hypercholesterolemia, unspecified; I12.9 Hypertensive chronic kidney disease with stage 1 through stage 4 chronic kidney disease, or unspecified chronic kidney disease; M43.6 Torticollis; R11.10 Vomiting, unspecified; R53.1 Weakness; K21.9 Gastro-esophageal reflux disease without esophagitis; Z79.899 Other long term (current) drug therapy; L65.0 Telogen effluvium
CPT/HCPCS: 36415; 70551; 71045; 80048; 80053; 80076; 81001; 82140; 82962; 84443; 84484; 85025; 85652; 86140; 93005; 96360; 96361; 96372; 97161; 97166; 99221; 99285; J7030; A4216; G0378

== ENCOUNTER 2022-09-06 16:47 | Outpatient (CLI) | payer MEDICARE, OTHER, SELFPAY ==
--- NOTE | 2022-09-06 | FLU_PTH ---
PATIENT: PREETHI THOMAS LOC: [facility] U#:[id number] AGE/SX: 82/F ROOM: RE09/06/[address]: Dr. Wiliam Llanos MD : 1940 BED: DIS: 09/06/2022 SPEC #: [id number] RECD: 09/06/22 16:45 STATUS: MEGHAN TIKI #: [id number] STEPHANIE: 09/06/22 00:[address]: Wiliam Llanos DEPT: CYTOLOGY RECD BY: Yomaira Johnson ENTERED: 09/07/22 09:17 SP TYPE: Fluid OTHR DR: Dr. Iza Fox MD Tissues: A - Thyroid gland, NOS B - Thyroid gland, NOS Procedures: Special Stain Group II Surgery Specimen Level IV Cytospin Fluid Cytology Other HEADER OPERATION: Fine needle aspiration left thyroid PRE-OP DIAGNOSIS: Abnormal thyroid ultrasound TISSUE SUBMITTED: A - FNA left thyroid fluid, B - FNA left thyroid x12 slides DIAGNOSIS CYTOLOGY A. Left thyroid nodule fluid, fine needle aspiration (cytospin and cell block): Negative for malignant cells. See comment. B. Left thyroid nodule, fine needle aspiration (smears): A few clusters of atypical follicular cells of undetermined significance in the background with follicular/colloid nodule with cystic change. [place] category III Adequate for evaluation. See comment. SJ:rg 09/08/2022 COMMENT A. The specimen predominantly consists of macrophages and a few clusters of benign follicular cells. Correlation with clinical, radiologic findings and appropriate follow up are necessary. Multi-gene next-generation sequencing panel (Afirma) is recommended for this lesion. This recommendation was communicated to the physician's office. The [place] System for thyroid diagnostic categorization was used in the evaluation of this case. Case has been reviewed in consultation with Dr. Sifuentes who concurs with the above diagnosis. IDC:AM CYTOLOGY STUDY Slides are reviewed. CYTOLOGY GROSS A - Received is 30 ml of brown cloudy fluid labeled with the patient's name and and designated per the requisition as left thyroid. Submitted for cytology preparation including cell block. B - Received are 12 smears labeled with the patient's name and designated per the requisition as left thyroid. Submitted for staining. / ewa 09/07/2022 TC:5 CPT: 95868 x2, 85578
== END 2022-09-06 23:59 | disposition home or self-care (01) ==
LOC: LABSPEC 17:02
PROVIDERS: PCP Internal Medicine; Referring Provider Surgery; Visit Provider Surgery
DX: R94.6 Abnormal results of thyroid function studies (principal)
CPT/HCPCS: 88108; 88161; 88305; 88313

== ENCOUNTER 2022-09-27 19:43 | Emergency (ER) | payer MEDICARE, OTHER, SELFPAY ==
[2022-09-27 19:45] VITALS: BP 219/71; PULSE 70; RESP 16; TEMP 36; O2SAT 99; BMI 35.6
--- NOTE | 2022-09-27 20:10 | RAD_ITS ---
INDICATION: chest pain EXAMINATION/TECHNIQUE: X-RAY - XR Chest 1 View AP portable. 8:12 PM COMPARISON: 08/15/2022 FINDINGS: LINES/DEVICES: None. LUNGS: No consolidation. No pneumothorax. MEDIASTINUM: Unremarkable. CARDIAC SILHOUETTE: Not enlarged. BONES AND SOFT TISSUES: No acute abnormalities. RAD/Chest 1 View (Portable) IMPRESSION: No evidence of active intrathoracic disease. Electronically Signed: Miriam Dale MD at 20:55 EDT ,
[2022-09-27 20:11] VITALS: BP 180/52
[2022-09-27 20:27] LABS: Absolute Lymphocyte Count 2.15 X10^3/uL (0.83-4.51); Absolute Neutrophil Count 5.8 X10^3/uL (2.0-7.7); Basophil# 0.05 X10^3/uL; Basophil% 0.6 % (0-1); Eosinophils% 3.4 % (0-5); Hematocrit 41.6 % (37-47); Hemoglobin 13.2 g/dL (12.0-15.0); Lymphocyte # 2.15 X10^3/ul (0.83-4.51); Lymphocyte % 24.4 % (19-41); Mean Corp Hgb Conc 31.7 g/dL (32-36); Mean Corpuscular Hgb 28.8 pg (27.0-32.0); Mean Corpuscular Volume 90.6 fL (81-99); Mean Platelet Vol. 10.9 fl (6.2-12.0); Monocyte# 0.46 X10^3/uL; Monocyte% 5.2 % (0-10); NRBC Flagged by Analyzer 0 % (0-5); Neutrophil # 5.83 X10^3/uL (2.7-7.7); Neutrophil % 66.1 % (47-70); Platelet Count 212 K/mm3 (150-450); RBC Distribution Width CV 15.4 % (11.6-14.6); RBC Distribution Width SD 50.8 fl (35.1-43.9); Red Blood Count 4.59 M/mm3 (4.2-5.4); White Blood Count 8.8 K/mm3 (4.4-11.0)
[2022-09-27 20:35] LABS: Anion Gap 9 (5-15); BUN 28 mg/dL (7-18); BUN/Creat Ratio 18.7 RATIO (10-20); Calcium,Total 8.4 mg/dL (8.5-10.1); Chloride 110 mmol/L (98-107); EST Glomerular Filtration Rate 35 mL/min (>60); Est Glom Filt Rate - Afr Amer 43 mL/min (>60); Estimated Creatinine Clearance 24.97 ml/min; Glucose 192 mg/dL (74-106); Potassium 4.4 mmol/L (3.5-5.1); Sodium Level 140 mmol/L (136-145); Troponin-I HS 9 pg/mL (3.0-54.0)
[2022-09-27 21:06] VITALS: BP 153/48; BP 168/58; BP 171/49; PULSE 76; PULSE 83; PULSE 97
[2022-09-27] MEDS: 0.9% Normal Saline 1,000 ML 999 ML IV (21:20)
--- NOTE | 2022-09-27 21:47 | EX.ED.DYSGE1 ---
HPI History of Present Illness Chief Complaint: Dizziness Narrative Narrative: 82-year-old female presenting with lightheadedness. She states that it started today. Patient states she went to [employer] to find a refrigerator filter and stated she did not bring her cane so she was a little bit off. She felt a little off balance there. She came home and her home health care nurse did check her blood pressure and it was 130/80 at that point. She states that later she went to stand up and felt lightheaded did not feel any vertiginous symptoms. She states that this went away but she checked her blood pressure and it was very high in the 200s. Patient takes takes her blood pressure medicines in the morning this includes amlodipine 10 mg which did to 5 mg pills. Patient also takes ramipril 2.5 mg daily. Patient's daughter notes that she accidentally took the Monday medicine and there is a leftover amlodipine in there, however the patient states that she definitely took 2 and there was accidentally 3 and there. It is unclear whether this is accurate. Patient denies any chest pain or shortness of breath. Recent history of hyponatremia which caused some dizziness. Patient is eating and drinking normally. She making normal urine and stool [facility] Medical History Actinic keratitis SENA (acute kidney injury) Bloating Cirrhosis Diabetes mellitus Diarrhea Diverticulitis Dysphagia Gastric reflux Generalized weakness GERD (gastroesophageal reflux disease) History of renal disease History of rheumatic fever History of stress test Hx of atypical nevus Hygroma Hypercholesteremia Hypertension Hypertension Insulin dependent diabetes mellitus Kidney disease Telogen effluvium Wears glasses Home Medications insulin glargine 100 unit/mL (3 mL) subcutaneous pen (Lantus Solostar U-100 Insulin) 28 unit subcut QHS Check with primary doctor 06/04/21 [History Last Taken 08/14/22] lovastatin 20 mg tablet 20 mg PO QHS 06/04/21 [History Last Taken 08/14/22] magnesium gluconate 27 mg magnesium (500 mg) tablet (Mag-G) 27 mg PO DAILY supplement 06/04/21 [History Last Taken Unknown] ramipril 2.5 mg capsule 5 mg PO DAILY 06/04/21 [History Last Taken 08/15/22] tacrolimus 1 mg capsule, immediate-release 1 mg PO BID 06/04/21 [History Last Taken 09/08/21] ergocalciferol (vitamin D2) 50,000 unit tablet 50,000 unit PO QWEEK 06/10/21 [History Last Taken 08/15/22] insulin aspart U-100 100 unit/mL (3 mL) subcutaneous pen (Novolog FlexPen U-100 Insulin aspart) 1 sliding scale dose subcut 3XD 06/10/21 [History Last Taken Unknown] pantoprazole 40 mg tablet,delayed release 40 mg PO QAM #90 tabs 12/06/21 [Rx Last Taken 08/15/22] amlodipine 10 mg tablet 10 mg PO DAILY 30 days #30 tabs 08/17/22 [Rx Last Taken Unknown] aspirin 81 mg capsule 81 mg PO DAILY 09/27/22 [History Last Taken Unknown] cetirizine 10 mg tablet 10 mg PO DAILY 09/27/22 [History Last Taken Unknown] gabapentin 100 mg capsule 100 mg PO Q12H 09/27/22 [History Last Taken Unknown] ketoconazole 2 % shampoo 1 applic topical Q3D 09/27/22 [History Last Taken Unknown] Allergy/AdvReac Type Severity Reaction Status Date / Time clarithromycin [From Biaxin] Allergy Hives Verified 09/27/22 19:45 Family History Other Diabetes Surgical History H/O: hysterectomy History of appendectomy History of bowel resection History of cardiac catheterization History of cholecystectomy History of dental surgery Hx of dilation and curettage Hx of LASIK Liver transplanted Social History Smoking Status: Never smoker ROS ROS ED ROS Narrative Lightheadedness Constitutional Constitutional ED: Denies chills, fever(s) or sweats Eyes Eyes: Denies blurry vision or change in vision ENT ENT ED: Denies ear pain or sore throat Cardiovascular Cardiovascular: Denies chest pain, palpitations or racing heartbeat Respiratory/Chest Respiratory/Chest: Denies cough, dyspnea or sputum Gastrointestinal Gastrointestinal: Denies abdominal pain, constipation, diarrhea, nausea or vomiting Genitourinary Genitourinary ED: Denies dysuria, hematuria or urinary frequency Musculoskeletal Musculoskeletal: Denies arthralgias, myalgias or neck pain Integumentary Denies abscess, Abrasions or rash Neurologic Neurologic: Denies headache(s), paresthesias or weakness Psychiatric Psychiatric: Denies anxiety, depression, suicidal ideation or suicidal thoughts Endocrine Endocrinology: Denies polydipsia or polyuria EXAM Physical Exam Const Vital Signs: 09/27/22 19:45 09/27/22 20:11 09/27/22 20:11 Temperature 96.8 F L Temperature Source Temporal Pulse Rate 70 Pulse Rate [Lying] Pulse Rate [Sitting (for 1 minute prior to obtaining)] Pulse Rate [Standing (for 1 minute prior to obtaining)] Respiratory Rate 16 Respiratory Effort Blood Pressure 219/71 H 180/52 H Blood Pressure [Lying] Blood Pressure [Sitting (for 1 minute prior to obtaining)] Blood Pressure [Standing (for 1 minute prior to obtaining)] Blood Pressure Mean 120 94 Blood Pressure Mean [Lying] Blood Pressure Mean [Sitting (for 1 minute prior to obtaining)] Blood Pressure Mean [Standing (for 1 minute prior to obtaining)] Pulse Ox 99 Oxygen Delivery Method Room Air 09/27/22 20:11 09/27/22 21:06 Temperature Temperature Source Pulse Rate Pulse Rate [Lying] 97 Pulse Rate [Sitting (for 1 minute prior to obtaining)] 76 Pulse Rate [Standing (for 1 minute prior to obtaining)] 83 Respiratory Rate Respiratory Effort Normal Non-Labored Blood Pressure Blood Pressure [Lying] 171/49 H Blood Pressure [Sitting (for 1 minute prior to obtaining)] 168/58 H Blood Pressure [Standing (for 1 minute prior to obtaining)] 153/48 H Blood Pressure Mean Blood Pressure Mean [Lying] 89 Blood Pressure Mean [Sitting (for 1 minute prior to obtaining)] 94 Blood Pressure Mean [Standing (for 1 minute prior to obtaining)] 83 Pulse Ox Oxygen Delivery Method Positive well nourished General Appearance ED: NAD; Negative for pallor HEENT Reports moist mucous membranes Eyes PERRL and EOMs intact bilaterally Chest Wall inspection of chest normal and palpation of chest normal Resp normal respiratory effort and clear to auscultation bilaterally Auscultation: Negative for rales, rhonchi or wheezes Cardio regular rate and regular rhythm GI normal to inspection, nondistended, normoactive bowel sounds Extremity normal to inspection Neuro oriented x3 and CN's II-XII intact bilaterally Sensorium / Orientation: alert Psych mental status grossly normal Skin no rashes or lesions noted and no wounds General Skin Exam: Negative for jaundice or pallor MDM MDM MDM Narrative Medical decision making narrative: Patient presenting with lightheadedness. Differential includes hyponatremia, dehydration, electrolyte abnormalities, dysrhythmia, pneumonia, anemia, acute coronary syndrome, CHF. CBC was obtained to assess white blood cell count, hemoglobin, platelets. BMP to assess renal function, electrolytes. High-sensitivity opponent EKG to assess for ischemia and dysrhythmia. Chest x-ray to rule out pneumonia. Chest x-ray on my interpretation shows no acute process. Radiologist interprets this and agrees. EKG shows a normal sinus rhythm with a ventricular to 66 bpm without sign of ischemic change or ectopy on my interpretation. CBC within normal limits. BMP shows a creatinine of 1.5 and a BUN of 28 but this is her baseline. High-sensitivity troponin is 9. I do not believe she is a delta troponin. I did obtain orthostatic vital sign and the patient's blood pressure did come down ultimately from its initial baseline but she also was orthostatic her blood pressure went from 171/49 to 153/48. Patient was symptomatic her heart rate went from 97-83. Given that she is given a liter IV fluids. I did discuss the case with the on-call for Dr. Espinoza who is Dr. Fajardo. He will pass this onto her. I do not believe she needs medication addition. After her fluids are given she will be reevaluated. She will be signed out to incoming ED physician for monitoring until this can occur. Impression: 1. Lightheadedness 2. Orthostatic hypotension 3. Elevated blood pressure Lab Data Attestation: I reviewed the patient's lab results. Labs: Laboratory Results - last 24 hr 09/27/22 20:08 WBC 8.8 RBC 4.59 Hgb 13.2 Hct 41.6 MCV 90.6 MCH 28.8 MCHC 31.7 L RDW Std Deviation 50.8 H RDW Coeff of Tim 15.4 H Plt Count 212 MPV 10.9 Immature Gran % (Auto) 0.300 Neut % (Auto) 66.1 Lymph % (Auto) 24.4 [place] % (Auto) 5.2 Eos % (Auto) 3.4 Baso % (Auto) 0.6 Absolute Neuts (auto) 5.8 Absolute Lymphs (auto) 2.15 Nucleated RBC % 0 Sodium 140 Potassium 4.4 Chloride 110 H Carbon Dioxide 21.0 Anion Gap 9 BUN 28 H Creatinine 1.50 H Estim Creat Clear Calc 24.97 Est GFR (MDRD) Af Amer 43 L Est GFR (MDRD) Non-Af 35 L BUN/Creatinine Ratio 18.7 Glucose 192 H Calcium 8.4 L Troponin I High Sens 9 Radiography Diagnostic Testing: Clinical Impression(s) from Imaging Studies Chest X-Ray 09/27/22 20:10 IMPRESSION: No evidence of active intrathoracic disease. Electronically Signed: Miriam Dale MD at 20:55 EDT , Discharge Plan Triage Chief Complaint: Dizziness ED Provider: Ashwin Lawson Dx/Rx/DC Orders Prescriptions: No Action insulin aspart U-100 [Novolog FlexPen U-100 Insulin] 100 unit/mL (3 mL) insulin pen 1 sliding scale dose subcut 3XD ergocalciferol (vitamin D2) 50,000 unit tablet 50,000 unit PO QWEEK insulin glargine [Lantus Solostar U-100 Insulin] 100 unit/mL (3 mL) insulin pen 28 unit SUBCUT QHS lovastatin 20 mg tablet 20 mg PO QHS magnesium gluconate [Mag-G] 27 mg magnesium (500 mg) tablet 27 mg PO DAILY Patient Comments: TAKE 1 TABLET BY MOUTH EVERY DAY ramipril 2.5 mg capsule 5 mg PO DAILY Hold Instructions: Resume on 06/08/21. Patient Comments: takes 5 mg daily tacrolimus 1 mg capsule 1 mg PO BID gabapentin 100 mg capsule 100 mg PO Q12H Patient Comments: take 1 capsule by mouth twice a day for headache or scalp pain ketoconazole 2 % shampoo 1 applic topical Q3D cetirizine 10 mg tablet 10 mg PO DAILY aspirin 81 mg capsule 81 mg PO DAILY amlodipine 10 mg Tablet 10 mg PO DAILY 30 Days Qty: 30 0RF pantoprazole 40 mg tablet,delayed release (DR/EC) 40 mg PO QAM Qty: 90 3RF Primary Care Provider: Iza Fox Referrals: Iza Fox MD [Primary Care Provider] -
[2022-09-28 00:14] VITALS: BP 179/50
== END 2022-09-28 00:15 | disposition home or self-care (01) ==
PROVIDERS: Emergency Provider Student in an Organized Health Care Education/Training Program; PCP Internal Medicine; Visit Provider Student in an Organized Health Care Education/Training Program
DX: I95.1 Orthostatic hypotension (principal); Z79.4 Long term (current) use of insulin; E11.9 Type 2 diabetes mellitus without complications; R03.0 Elevated blood-pressure reading, without diagnosis of hypertension; K21.9 Gastro-esophageal reflux disease without esophagitis; Z79.82 Long term (current) use of aspirin; Z79.899 Other long term (current) drug therapy
CPT/HCPCS: 71045; 80048; 84484; 85025; 93005; 99285; J7030; A4216

== ENCOUNTER → 2023-01-19 | Outpatient (CLI) | payer MEDICARE, OTHER, SELFPAY ==
[2023-01-19] VITALS (12 sets, daily range): BP systolic 99–171; BP diastolic 29–66; PULSE 50–62; RESP 10–18; TEMP 36.4; O2SAT 87–99; BMI 34.8
--- NOTE | 2023-01-19 | KID_PTH ---
PATIENT: PREETHI THOMAS LOC: CT U#:[id number] AGE/SX: 82/F ROOM: RE01/19/[address]: Dr. Felisha Mars MD : [id number] BED: DIS: 01/19/2023 SPEC #: [id number] RECD: 01/19/23 09:28 STATUS: MEGHAN REQ #: [id number] STEPHANIE: 01/19/23 00:[address]: Felisha Mars DEPT: SURGICAL PATHOLOGY RECD BY: [place] ENTERED: 01/19/23 09:28 SP TYPE: KIDNEY OTHR DR: Dr. Iza Fox MD Tissues: Kidney, NOS Procedures: Electron Microscopy (ACH) Fluorescent Antibody (ACH) Sp St Grp II Kidney (ACH) Kidney Biopsy ([facility]) Fluorescent antibody (ACH) add'l HEADER OPERATION: CT-guided right kidney biopsy PRE-OP DIAGNOSIS: Renal failure TISSUE SUBMITTED: Right kidney 18-gauge x4 MICROSCOPIC DIAGNOSIS Kidney, right, biopsies: Glomerulosclerosis with micronodular and ischemic changes. Interstitial fibrotic change (estimated at 40%). Arteriosclerotic and hypertensive changes. See comment. COMMENT Correlate clinically with history and onset of symptoms. The histologic findings support evidence of diabetic and arteriosclerotic changes. There is no evidence of immune-mediated or inflammatory glomerulopathy. CLINICAL INFORMATION: Renal failure, right kidney biopsy. Past medical history of liver transplant (performed in 1999; cryptogenic cirrhosis), diverticulosis, retinopathy, immunosuppression and hyperlipidemia. Chronic kidney disease stage III. Patient on tacrolimus. Creatinine rising with worsening urine protein to creatinine ratio. Edema likely from nephrotic range proteinuria. Additional history of high blood pressure with chronic kidney disease, hyperparathyroidism, chronic kidney disease stage IIIa, diabetes mellitus type 2, anemia of renal disease, nephrosclerosis, hyperkalemia. Proteinuria worsening up to 6 g. MICROSCOPIC DESCRIPTION Light microscopy examined with H&E, PAS, Jauregui silver, trichrome and [place] red stains yields adequate renal cortex for evaluation. There are 45 glomeruli present; of which 24 (majority) show global glomerulosclerosis. The remainder open glomeruli show variable glomerulomegaly. There are occasional Kimmelstiel-Casey nodule. There are rare glomeruli showing peripheral fibrin cap changes. There are variable glomerular ischemic changes including thickened hilar vessels and Betancourt's capsule fibrotic change. There is a rare glomeruli with parietal cell hyperplasia; favor reactive change in lieu of a true cellular crescent. The interstitium shows variable lymphocytic infiltrate and focal areas of lymphoid aggregate in area of scarring. There is interstitial fibrotic change estimated at approximately 40% with trichrome stain. There is no definitive evidence of a so-called striped fibrotic pattern. There is proportionate patchy tubular atrophy. Focal tubules demonstrate increased Tamm-Horsfall proteinaceous material. There are numerous vessels/arterioles demonstrating thickening, dilation, asymmetry and tortuous changes. There are focal smaller vessels with hyaline changes. There is no evidence of a vasculitis. Congo red stain does not highlight any evidence of amyloid deposition or accumulation. There is focal capsular fibrous tissue present with rare hemorrhagic change. There is sparse minimal junctional/ medullary tissue. Special stain positive controls are reviewed and deemed adequate. IMMUNOFLUORESCENCE: Tissue frozen and submitted for immunofluorescence evaluation yields 4 glomeruli; of which 2 are globally sclerosed. There is also 1 partially visualized glomerulus. There is background glomerular and cortex signal with IgG and albumin, IgM, C3, C1q and fibrin are essentially negative. [place] and lambda highlight occasional tubule debris in an equal weak pattern. IgA also highlights this tubule material. Positive and negative immunofluorescence controls are reviewed and deemed adequate. ELECTRON MICROSCOPY: Toluidine blue semithin sections show two glomeruli, one of which is globally sclerotic. Ultrastructural examination was performed on the non-sclerotic glomerulus. The glomerular loops are partially compressed by an increase in mesangial matrix material and cellularity. The glomerular basement membranes are of approximately normal caliber. The visceral epithelial foot processes show effacement over approximately 30% of the glomerular capillary loop surface area. No electron-dense immune-type deposits are seen. Tubules are unremarkable. GROSS DESCRIPTION The specimen is sent entirely to [facility] for diagnosis. Received within polytransport media labeled with the patient's name and kidney biopsy are four cores of grace-pink soft tissue, ranging in size from 1.0 to 1.4 cm in length and averaging 0.1 cm in diameter. Tissue is submitted fresh for immunofluorescence, in glutaraldehyde for electron microscopy, and the remaining in formalin for light microscopy (cassette A1).
[2023-01-19] MEDS: 0.9% Saline Lock 10 ML Syringe IV (08:25)
[2023-01-19] MEDS: 0.9% Normal Saline (250mL Bag) 250 ML 15 ML IV (08:28)
[2023-01-19] MEDS: Midazolam 2 MG/2 ML Syringe IV (08:45)
[2023-01-19] MEDS: fentaNYL 100 MCG/2 ML Ampul IV (08:47)
[2023-01-19] MEDS: Lidocaine 2% (20 ml mdv) 20 ML Vial INFILT (09:01)
--- NOTE | 2023-01-19 09:18 | PRO.PCM_ITS ---
Procedure Report Date of Procedure: 01/19/23 Assessment & Plan Assessment/Plan (1) Nephrosclerosis: QUALIFIERS: Hypertensive chronic kidney disease stage: stage 1-4 or unspecified chronic kidney disease Qualified Code(s): I12.9 - Hypertensive chronic kidney disease with stage 1 through stage 4 chronic kidney disease, or unspecified chronic kidney disease (2) Chronic kidney disease, stage 3a: PLAN: PROCEDURE: CT GUIDED RIGHT PERCUTANEOUS KIDNEY BIOPSY. ORDERING PROVIDER: Dr. Mars INDICATION: Female, 82 years old. Chronic kidney disease, stage IIIa and nephrosclerosis. PROVIDER: FANI Corona CONSENT: Written informed consent was obtained having explained the risks, benefits and alternatives in detail with the patient. The specific risk of hemorrhage requiring further treatment or intervention was detailed and accepted. The patient accepted the risks and agreed to proceed. Laboratory review and clinical assessment was performed. PRE-PROCEDURE SEDATION ASSESSMENT: Current history and physical dictated by referring provider and reviewed. No clinical changes since date of exam. Patient has an ASA Class of 2. PROCEDURAL SEDATION PROTOCOL: The Drugs used were: 2 mg Versed, IV, and 50 mcg Fentanyl, IV. The sedation time was: 20 minutes, starting at 8:45 AM and terminated at 9:05 AM. The procedural sedation protocol was independently monitored by the department n urse. RADIATION DOSAGE (If Supplied By Facility): CTDIvol = 20.09 mGy, DLP = 754.22 mGycm Individualized dose optimization techniques were used for this CT. TECHNIQUE: The patient was placed on the CT table in the prone position. Multiple axial images were obtained from the lung base through the caudal extent of the kidneys. An appropriate entry site was identified and a olga made on the skin. The skin overlying the right posterior flank was prepped and draped in sterile fashion. 2% lidocaine was administered subcutaneously for local anesthesia. Using CT guidance, an 18-gauge coaxial biopsy device was advanced to the medial midportion of the right kidney. A total of 4 core specimens were obtained. Specimens were collected and placed in the appropriate laboratory solution. The needle was withdrawn. Hemostasis was achieved with manual compression and a sterile dressing was applied. The patient tolerated the procedure well without immediate complications. The patient returned to the holding bay in stable condition for nursing monitoring, per protocol. IMPRESSION: 1. Successful CT guided percutaneous right kidney biopsy. Pathology results are pending. 2. Procedural Sedation protocol utilized with independent monitoring by the department nurse. Procedures Radiology Radiology CT Procedures: 22195 Biopsy Kidney
== END | disposition home or self-care (01) ==
LOC: CT 07:44
PROVIDERS: PCP Internal Medicine; Referring Provider Internal Medicine Nephrology; Visit Provider Internal Medicine Nephrology
DX: I12.9 Hypertensive chronic kidney disease with stage 1 through stage 4 chronic kidney disease, or unspecified chronic kidney disease (principal); N18.31 Chronic kidney disease, stage 3a
CPT/HCPCS: 50200; 77012; 88305; 88307; 88313; 88346; 88348; 88350; 99156; J7050; A4216